=== PATIENT | female | born 1955 | race Caucasian/White ===

== ENCOUNTER 2016-11-14 06:47 | Day surgery (SDC) | payer OTHER ==
[2016-11-13 09:43] VITALS: BMI 29.0
[2016-11-14] MEDS ORDERED: LACTATED RINGERS 1,000 ML IV ONE (07:15)
[2016-11-14 07:29] VITALS: TEMP 97.7
[2016-11-14] MEDS ORDERED: LIDOCAINE 1% 20 ML VIAL (10MG/ML) FOR IV START INTRADERMA ONE (07:40)
[2016-11-14] MEDS ORDERED: BUPIVACAINE (PF) 0.5% 30 ML VIAL ONE (08:29)
[2016-11-14] MEDS ORDERED: fentaNYL (PF) 50 MCG/ML 2 ML AMP ONE (08:29)
[2016-11-14] MEDS ORDERED: MIDAZOLAM 2 MG/2 ML VIAL ONE (08:29)
[2016-11-14] MEDS ORDERED: IOHEXOL 180 MG/ML 1 ML ML ONE (08:29)
[2016-11-14] MEDS ORDERED: TRIAMCINOLONE ACETONIDE 40 MG/ML 1 ML VIAL ONE (08:29)
--- NOTE | 2016-11-14 08:43 | P.PCN ---
Date of Procedure: 11/14/16 Anesthesia: [facility] [place] Surgeon: Bin Diaz Pathology: none sent Condition: stable Disposition: PACU Description of Procedure: PREOPERATIVE DIAGNOSIS: 1-Bilateral sacroiliitis. 2 Lumbar DDD POSTOPERATIVE DIAGNOSIS:. 1-Bilateral sacroiliitis. 2 Lumbar DDD PROCEDURES: Bilateral Sacroiliac joint steroid injection with fluoroscopy ANESTHESIA: Local with 1% lidocaine; Conscious sedation with Versed/fentanyl. EBL: Minimal. PROCEDURE INDICATIONS: This patient with a history of low back pain secondary to sacroiliitis and lumbar DDD unresponsive to conservative management with good relief from previous SIJ injections, #3 today. No use of blood thinners. PROCEDURE DESCRIPTION: The patient was seen and identified in the preoperative area. Risks, benefits, complications, and alternatives were discussed with the patient (including but not limited to incomplete pain relief, bleeding, infection, nerve damage, and allergies to medications), the patient agreed to proceed with the procedure and signed the consent after all questions were answered. Patient was taken to the OR and time out was completed to verify proper patient , position, laterality of pain, and allergies. Pt was placed in the prone position and a pillow was placed under the abdomen to reduce lumbar lordosis. The lumbosacral area was prepped and draped in the usual sterile fashion. Critical pause was taken. Vital signs were closely monitored during the procedure. The fluoroscopic camera was placed in contralateral oblique view and right sacroiliiac joint lower pole was identified. After local infiltration with 1% lidocaine 2 ml, Subsequently, a 22-gauge 3.5 inch spinal needle was introduced into the posteroinferior aspect of the right sacroiliac joint under direct fluoroscopic visualization. Subsequently, 3 ml of a solution of a total of 6 ml solution containing total 4 mL of 0.5% preservative-free bupivicaine mixed with 80 mg of Kenalog was injected after negative aspiration for CSF, blood, and air and negative for paresthesia. The entire procedure was repeated on the left side as above. Needle was withdrawn intact. Skin was cleansed, and bandages were applied. COMPLICATIONS: None. COMMENTS: DISPOSITION / PLANS: The patient was placed in a supine position and transferred to the recovery area in a stable condition for observation and was discharged from the recovery room after meeting discharge criteria. Home discharge instructions given to the patient by the staff. The patient was reexamined prior to discharge. The patient will schedule a follow up in clinic in 4-6 weeks. Patient is not a candidate for SI RFA due to extensive hardware overlying both lumbar spine and sacrum.
--- NOTE | 2016-11-14 09:03 | FL ---
EXAMINATION TYPE: FL guided pain mgmt statistic DATE OF EXAM: 11/14/2016 8:45 AM COMPARISON: NONE HISTORY: Back pain Fluoroscopy support supplied to the referring clinician. See dictated report from anesthesia, 8 seco nds fluoroscopy time, four intraoperative C-arm images document the procedure
[2016-11-14 09:16] VITALS: BP 119/78; PULSE 66; RESP 16
[2016-11-14] MEDS ORDERED: IV FLUID CONTINUATION 1,000 ML IV ONE (09:34)
== END 2016-11-14 09:37 | disposition home or self-care (01) ==
LOC: ORPAIN 06:47
PROVIDERS: ATTEND Anesthesiology
DX: M46.1 Sacroiliitis, not elsewhere classified (principal); M51.36 Other intervertebral disc degeneration, lumbar region; G89.29 Other chronic pain; I10 Essential (primary) hypertension; K21.9 Gastro-esophageal reflux disease without esophagitis; Z79.899 Other long term (current) drug therapy
CPT/HCPCS: J2250; J3301; Q9965; J3010; G0260

== ENCOUNTER → 2016-12-11 | Outpatient (CLI) | payer OTHER ==
[2016-12-11 14:50] VITALS: BP 140/88; PULSE 104; RESP 18
--- NOTE | 2016-12-11 15:26 | P.PN ---
Subjective This is follow-up visit for this patient with a history of severe and chronic low back pain secondary to , bilateral sacroiliitis , failed back surgery syndrome lumbar area , patient had 4 lumbar laminectomy/fusion surgery , , we have done interventional pain management injection, bilateral sacroiliac joint steroid injections, and she get excellent pain relief, her pain improved more than 50% after the sacroiliac joint steroid injection and each injection lasted more than 3-4 weeks , and is currently on pain medications 1-Neurontin 600 mg 3 times a day 2- Flexeril 10 mg 3 times a day 3 -Dilaudid 4 mg every 4 hours Patient denies any side effects of the medication, denies excessive drowsiness or sleepiness, denies suicidal ideation, and reports that the current pain medication is NOT helping To control the pain and improve activity of daily living Physical Examinations : 1-Constitutiona : Cooperative , not in acute distress . 2-HEENT : nech ; supple , no Lymphadenopathy , no Thyromegaly , normal thyroid size . eyes : no ptosis , no icterus, no photophobia . ENT : normal of hearing , normal oropharynx , no Thrush . 3- Respiratory : Chest clear to auscultations Bilaterally , no wheezing , no Rhonchi . 4- Cardiovascular : regular rate and rhythem , S1 , S2 , no S3 , no S4. 5- Gastrointestinal : abdomen soft no tenderness , bowel sounds positive all four quadrents , no organomegally . 6- Genitourinary : Defferred . 7- neurologic : Cranial nerve II to XII intact , no focal neurological deffecit . 8-psychatric : alert , oriented X 3 , appropriate affect , intact judgment and insight . 9-Lymphatic : no Lymphadenopathy . 10- musculoskeltal : exams of the Lumber spine = motor strength lower extremities ,thigh and legs .5/5 deep tendon reflexes : normal Knee Jerk , normal ankle Jerk . lumber facet Loading Test positive strait leg raising test positive at 30 degree , RT ,LT , Fabere test positive RT and positive LT . Range of motion: Range of motion in flexion of the lumbar spine 30 degrees Range of motion range of motion of extension of the lumbar spine 10 Sever tenderness over the Sacroiliac joint on the Right , and Left side Diagnostic study= MRI of the lumbar spine done 10/09/2016 (thumb MRI) extensive postsurgical changes, from interbody and posterior fusion from L2 to S1 on the right paracentral disc protrusion T11 12 and probable severe seroma within the laminectomy site Assessment and plan = - Chronic low back pain secondary to , sacroiliitis ,failed back surgery syndrome lumbar area. - Status post bilateral sacroiliac joints steroid injections, and she had more than 50% improvement of her low back pain after the sacroiliac injections - diagnoses, prognosis, and treatment options including but not limited to physical therapy, surgical interventions, interventional therapies , and medication management including narcotics and adjuvant medication were discussed with the patient and all The questions answered -medication management = she is getting prescription refill from her primary care -procedure= patient will be scheduled to have radiofrequency ablation of the dorsal ramus of L5-S1 ,and radiofrequency ablation of the lateral branches of S1/S2/S3 under fluoroscopy guidance, we will schedule the procedure after patient is seen by Dr. Connolly at [facility], to discuss with him about the results of the new MRI that was done in September 2016, and this showed the patient had seroma measuring 4.3x 2.2 x8.9 cm Objective - Vital Signs Vital signs: Vital Signs Temp Pulse 104 H 12/11/16 14:46 Resp 18 12/11/16 14:46 BP 140/88 12/11/16 14:46 Pulse Ox 96 12/11/16 14:46 Intake & Output 12/10/16 12/11/16 12/11/16 18:59 06:59 18:59 Weight 79.379 kg
== END | disposition home or self-care (01) ==
LOC: PNWHC3 14:06
PROVIDERS: ATTEND Specialist
DX: M46.1 Sacroiliitis, not elsewhere classified (principal); M96.1 Postlaminectomy syndrome, not elsewhere classified; Z98.1 Arthrodesis status; Z79.899 Other long term (current) drug therapy
CPT/HCPCS: 99211

== ENCOUNTER 2017-03-06 09:00 | Day surgery (SDC) | payer OTHER ==
[2017-03-02 10:54] VITALS: BMI 29.0
[~2017-03-06 09:00] MED LIST: LACTATED RINGERS 1,000 ML IV SCH
[2017-03-06 10:12] VITALS: TEMP 98.3
[2017-03-06] MEDS ORDERED: LIDOCAINE 1% 20 ML VIAL (10MG/ML) FOR IV START SQ ONE (10:12)
[2017-03-06] MEDS ORDERED: LACTATED RINGERS 1,000 ML IV ONE (10:14)
[2017-03-06] MEDS ORDERED: MIDAZOLAM 2 MG/2 ML VIAL ONE (10:20)
[2017-03-06] MEDS ORDERED: fentaNYL (PF) 50 MCG/ML 2 ML AMP ONE (10:20)
[2017-03-06] MEDS ORDERED: TRIAMCINOLONE ACETONIDE 40 MG/ML 1 ML VIAL ONE (10:20)
--- NOTE | 2017-03-06 10:47 | P.PCN ---
Date of Procedure: 03/06/17 Surgeon: Bin Diaz Pathology: none sent Condition: stable Disposition: PACU Description of Procedure: PREOPERATIVE DIAGNOSIS: Sacroiliitis; lumbar spondylosis without myelopathy POSTOPERATIVE DIAGNOSIS: Sacroiliitis; lumbar spondylosis without myelopathy PROCEDURE: Radiofrequency thermocoagulation/ablation of the Medial branch of L5 and S1, S2, S3 lateral branch levels under fluoroscopic guidance, right ANESTHESIA: Local with 1% lidocaine; IV sedation with Versed/fentanyl EBL: Minimal PROCEDURE INDICATION: The patient with low back pain secondary to sacroilitis with marked decrease in pain with prior sacroiliac joint injections. No use of blood thinners. Good relief from previous L SI RFA, patient presents for R SI RFA today. PROCEDURE DESCRIPTION: The patient was seen and identified in the preoperative area. Risks, benefits, complications, and alternatives were discussed with the patient, with risks including but not limited to bleeding, infection, nerve damage, incomplete pain relief, and allergic reactions to medications. The patient agreed to proceed with the procedure and signed the informed consent after all questions were answered. IV was started. Vital signs were stable throughout the procedure. Patient was taken to the OR and time out was completed to verify proper patient , procedure, laterality of pain, and allergies. The patient was placed in the prone position on procedure table and a pillow was placed under the abdomen to reduce lumbar lordosis. The lumbosacral area was prepped and draped in the usual sterile fashion. Critical pause was taken. Vital signs were closely monitored during the procedure. L5 Medial Branch: Using right oblique fluoroscopy, the junction of the transverse process and the superior articular process of the top of the sacrum on the right side, which correspond to the fluoroscopic image of the "eye of the Alex dog" was identified. Skin and deeper tissues were localized with 1% lidocaine at the identified level. Then using fluoroscopy, a 10-cm 18-gauge radiofrequency cannula with a 10-mm active tip was was advanced under fluoroscopic guidance until contact was made with periosteum. At this level, the Sensory testing of L5 Medial branch was performed at 50 Hz and 0 to 1 volt with production of concordant pain. Motor stimulation was done at 2 Hz with stimulation of multifidus muscle contraction at (0.1-2.5) volts. No radicular symptoms or paresthesias were produced during the testing. Subsequently, the L5 medial branch was subjected to a radiofrequency ablation at a mode of 90 seconds at 80 degrees Celsius after negative motor and sensory testing as indicated and after injecting 0.5 ml of preservative free Lidocaine 1%. Then after the radiofrequency procedure was done, 1 mL of a solution containing 4 mL of 0.5% preservative-free lidocaine mixed with 40 mg of Kenalog. S1, S2, and S3 Medial branches: Using the oblique position, the right sacroiliac joint was identified. Skin and deeper tissues corresponding to the site were anesthetized with 1% lidocaine. Under fluoroscopic guidance, a total of three 10-cm 18-gauge radiofrequency cannula with 10-mm active tips were advanced to the lateral aspects of the S1, S2, and S3 vertebral foramina. Subsequently, sensory and motor testings were performed at a total of 3 segments at 50 Hz and 2 Hz respectively which produced concordant pain without radiculopathy or paresthesia. Then each segment was subjected to radiofrequency ablation at a mode of 90 seconds at 80 degrees Celsius for a total of 3 lesions with the bipolar technique. Then after the radiofrequency procedure was done, each site was injected with 1 mL of the aforementioned solution containing 4 mL of 0.5% preservative-free lidocaine mixed with 40 mg of Kenalog. The needles were withdrawn. Area was cleaned. Band-Aid was applied. COMPLICATIONS: None. COMMENTS: DISPOSITION / PLANS: The patient was placed in a supine position and transferred to the recovery area in a stable condition for observation and was discharged from the recovery room after meeting discharge criteria. Home discharge instructions given to the patient by the staff. The patient was reexamined prior to discharge. The patient will schedule a follow up in clinic in 4-6 weeks. Of note, the patient has extensive hardware in her lumbar spine and sacrum, so this procedure was technically extremely challenging due to poor visualization on fluoroscopy. That said, there was some positive sensory testing and all motor testing was completely negative.
[2017-03-06 11:00] VITALS: RESP 16
[2017-03-06 11:20] VITALS: BP 153/92; PULSE 84
[2017-03-06] MEDS ORDERED: IV FLUID CONTINUATION 1,000 ML IV ONE (11:20)
--- NOTE | 2017-03-06 12:43 | FL ---
Fluoroscopy HISTORY: Pain 15 seconds fluoroscopy time supplied to the referring clinician. 3 intraoperative C-arm images docum ent the procedure. See dictated report from anesthesia.
== END 2017-03-06 11:32 | disposition home or self-care (01) ==
LOC: ORPAIN 09:00
PROVIDERS: ATTEND Anesthesiology
DX: G89.29 Other chronic pain (principal); M46.1 Sacroiliitis, not elsewhere classified; M47.816 Spondylosis without myelopathy or radiculopathy, lumbar region; K21.9 Gastro-esophageal reflux disease without esophagitis; Z79.891 Long term (current) use of opiate analgesic; Z79.899 Other long term (current) drug therapy
CPT/HCPCS: 64640; 64635; 99152; J2250; J3301; J3010

== ENCOUNTER → 2017-04-03 | Outpatient (CLI) | payer OTHER ==
[2017-04-03 12:26] VITALS: BP 138/77; PULSE 85; RESP 16; TEMP 98.2
--- NOTE | 2017-04-04 11:33 | P.PN ---
Subjective follow-up visit for this 61 years FEMALE with a chronic history of severe low back pain ,she had multiple lumbar laminectomy and fusion surgeries , and she is diagnosed with failed back surgery syndrome, lumbar area and lumbar spondylosis and sacroiliitis, done radiofrequency ablation on the Kerlix around and patient currently complaining of, severe low back pain in the lumbar area, denies any motor or sensory deficits. She denies any motor or night sweats and no change in the bowel movement or urination. His currently on multiple pain medications. and these medications are not helping, from her pain and improve her quality of life, is currently on methadone 15 mg 3 times a day, Dilaudid 4 mg every 4 hours, Neurontin 600 mg 3 times a day, Motrin 600 mg every 8 hours, and Flexeril 10 mg 3 times a day, denies any side effects of the medication and she denies any excessive drowsiness or sleepiness, but she reported ,that the current pain medication is not helping Objective - Vital Signs Vital signs: Vital Signs Temp 98.2 F 04/03/17 12:14 Pulse 85 04/03/17 12:14 Resp 16 04/03/17 12:14 BP 138/77 04/03/17 12:14 Pulse Ox Intake & Output 04/03/17 04/04/17 04/04/17 18:59 06:59 18:59 Weight 84.368 kg - Exam Physical Examinations : 1-Constitutiona : Cooperative , not in acute distress . 2-HEENT : nech ; supple , no Lymphadenopathy , normal thyroid size . eyes : no ptosis , no icterus, no photophobia . ENT : normal of hearing , normal oropharynx , no Thrush . 3- Respiratory : Chest clear to auscultations Bilaterally , no wheezing , no Rhonchi . 4- Cardiovascular : regular rate and rhythem , S1 , S2 , no S3 , no S4. 5- Gastrointestinal : abdomen soft no tenderness , bowel sounds positive all four quadrents , no organomegally . 6- Genitourinary : Defferred . 7- neurologic : Cranial nerve II to XII intact , no focal neurological deffecit . 8-psychatric : alert , oriented X 3 , appropriate affect , intact judgment and insight . 9-Lymphatic : no Lymphadenopathy . 10- musculoskeltal : , Lumber spine = normal moter stegnth lower extremities ,thigh and legs .5/5 deep tendon reflexes : normal Knee Jerk , normal ankle Jerk . positive lumber facet Loading Test strait leg raising test positive at 30 degree , RT ,LT , Fabere test positive RT and positive LT . Sever tenderness over the Sacroiliac joint on the Right , and Left side . There is open lesion at the tailbone area (superficial skin opening, no discharge, no tenderness ) Assessment and Plan Plan: Assessment and plan = - Chronic low back pain secondary to , lumbar spondylosis with facet arthropathy without myelopathy , failed back surgery syndrome lumbar area , sacroiliitis - diagnoses, prognosis, and treatment options including but not limited to physical therapy, surgical interventions, interventional therapies and medication management including narcotics and adjuvant medication were discussed with the patient and all questions answered to the patient's satisfaction. -medication refile = currently getting Prescription refills from her primary care, because patient having no benefit from the current pain medication. I recommend to discontinue methadone and discontinued Dilaudid, Patient could benefit from MS Contin 15 mg every 8 hours , and Wyatt 10/325 every 6 hours (prescription from her primary care ) Recommend continue Neurontin 600 mg 3 times a day, and Flexeril 10 mg 3 times a day, and continue Motrin 600 mg every 8 hours -procedure= in the future we can consider doing caudal epidural steroid injection with lysis of epidural adhesions Time with Patient: Less than 30
== END | disposition home or self-care (01) ==
LOC: PNWHC3 11:52
PROVIDERS: ATTEND Specialist
DX: M47.816 Spondylosis without myelopathy or radiculopathy, lumbar region (principal); M46.96 Unspecified inflammatory spondylopathy, lumbar region; M46.1 Sacroiliitis, not elsewhere classified; M96.1 Postlaminectomy syndrome, not elsewhere classified; G89.29 Other chronic pain; Z79.1 Long term (current) use of non-steroidal anti-inflammatories (NSAID); Z79.899 Other long term (current) drug therapy
CPT/HCPCS: 99211

== ENCOUNTER → 2017-05-02 | Outpatient (CLI) | payer OTHER ==
[2017-05-02 14:05] VITALS: BP 140/90; PULSE 94; RESP 18; TEMP 97.9
--- NOTE | 2017-05-02 14:35 | P.PN ---
Progress Note - Text Patient returns for followup for chronic back pain with radiation to to the back of the LLE. Patient recently underwent bilateral SI RFA, the right side of which caused severe pain but did give her some relief beginning last week. Patient continues on opioid medications for pain from PCP with good relief. Patient denies adverse drug effects from medications. Today, pt denies new- onset weakness, bowel/bladder incontinence, or any other signs or symptoms of cauda equina syndrome. There are no signs of acute intoxication, and no indications of medication diversion or overuse. In addition to above, 13-point review of systems is also negative for chest pain , shortness of breath, changes in vision, changes in hearing, new onset weakness , abdominal pain, diarrhea, extreme fatigue, malaise, fever, skin changes, homicidal or suicidal ideation, or bowel or bladder incontinence. Vital Signs: Reviewed in EMR Gen: WDWN, AAOx3, NAD HEENT: NCAT, EOMI, hearing grossly normal Pulm: resp unlabored Abd: soft, NT, ND Neck: supple, trachea midline ROM in flexion lumbar spine: reduced ROM in extension lumbar spine: reduced significantly Lumbar paravertebral tenderness: + Facet loading: + bilateral, L > R SI joint tenderness: + L > R Nolberto's test: + L > R Straight leg raise: neg Lower extremity: decreased ROM dorsiflexion/plantarflexion strength, hip flexion/extension, and knee flexion/extension secondary to pain Neuro: CN II-XII grossly intact, muscle strength lower extremities PRESERVED Imaging: Reviewed in EMR Assessment: 1. lumbar PLPS 2. lumbar spondylosis without myelopathy 3. chronic pain syndrome Plan: 1. Explanation: Opioid and psychological risk scores were reviewed. Diagnoses , prognoses, and multiple treatment options including but not limited to physical therapy, interventional therapies, adjuvant medical therapies, narcotic medication therapies, and surgery were discussed with the patient and all questions were answered to the patient's satisfaction. 2. Opioid agreement: no opioids prescribed today 3. Counseling: The patient was counseled extensively on BODY MASS INDEX, EXERCISE. Specifically, the patient was instructed regarding the importance of weight control and exercise in the context of both chronic pain and overall health. 4. Procedures: none for now, patient does not want caudal with lysis 5. Consultations: None 6. Investigations: None 7. Medications: none prescribed 8. Disposition: f/u for re-eval in 8 weeks; patient wishes to go to the gym and improve her core strength. I discussed SCS option with her as well, which she wishes to consider at this point as well. PQRS measures: 1-Patient's medications are documented in the chart. 2-Tobacco use is negative 3-Patient has not had a pneumococcal vaccine. 4-Advanced care planning discussed, patient unable to give. 5-Opioid contract signed with the patient. 6-Pain positive, follow-up visit or procedure scheduled 7-Patient's blood pressure measured and documented, and patient will follow up with the primary care due to hypertension. 8-Patient's weight was measured, and body mass index ABOVE the normal limits, and counseling was done. Patient instructed to follow up with PCP. 9-Patient WAS NOT identified as an unhealthy alcohol user.
== END ==
LOC: PNWHC3 13:13
PROVIDERS: ATTEND Anesthesiology
DX: M47.816 Spondylosis without myelopathy or radiculopathy, lumbar region (principal); G97.1 Other reaction to spinal and lumbar puncture; G89.4 Chronic pain syndrome
CPT/HCPCS: 99211

== ENCOUNTER → 2017-07-19 | Outpatient (CLI) | payer OTHER ==
[2017-07-19 13:58] VITALS: BP 128/77; PULSE 74; RESP 16; TEMP 98.3
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
== END ==
LOC: PNWHC3 13:19
PROVIDERS: ATTEND Anesthesiology
DX: M54.5 Low back pain (principal); Z79.891 Long term (current) use of opiate analgesic
CPT/HCPCS: 99211

== ENCOUNTER → 2017-11-01 | Outpatient (CLI) | payer OTHER ==
--- NOTE | 2017-11-01 15:18 | P.PN ---
Subjective Progress Note Date: 11/01/17 This is follow-up visit for this patient with a history of severe and chronic low back pain secondary to recurrent uveitis and failed back surgery syndrome and lumbar area,we have done, interventional pain management injection,, lateral sacroiliac joints steroid injections and she had good pain relief but later on we did radiofrequency ablation of the sacroiliac joint , patient had, increase in her pain for 6 weeks after the radiofrequency, currently she is complaining of severe localized pain in the low back area radiating to the buttock bilaterally Patients currently on 1-Lidoderm patch 5% 2-Motrin 600 mg 3 times a day 3-Neurontin 600 mg 3 times a day. 4-flexeril 10 mg 3 times a day Patient denies any side effects of the medication, denies excessive drowsiness or sleepiness, denies suicidal ideation, and reports that the current pain medication is NOT helping To control the pain , and improve activity of daily living , patient denies any fever or night sweats, denies any change in the bowel movements or urination Physical Examinations : 1-Constitutiona : Cooperative , not in acute distress . 2-HEENT : nech ; supple , no Lymphadenopathy , no Thyromegaly , normal thyroid size . eyes : no ptosis , no icterus, no photophobia . ENT : normal of hearing , normal oropharynx , no Thrush . 3- Respiratory : Chest clear to auscultations Bilaterally , no wheezing , no Rhonchi . 4- Cardiovascular : regular rate and rhythem , S1 , S2 , no S3 , no S4. 5- Gastrointestinal : abdomen soft no tenderness , bowel sounds positive all four quadrents , no organomegally . 6- Genitourinary : Defferred . 7- neurologic : Cranial nerve II to XII intact , no focal neurological deffecit . 8-psychatric : alert , oriented X 3 , appropriate affect , intact judgment and insight . 9-Lymphatic : no Lymphadenopathy . 10- musculoskeltal : exams of the Lumber spine = motor strength lower extremities ,thigh and legs .4/5 deep tendon reflexes : normal Knee Jerk , normal ankle Jerk . lumber facet Loading Test positive strait leg raising test positive at 30 degree , RT ,LT , Fabere test positive RT and positive LT . Range of motion: Range of motion in flexion of the lumbar spine 30 degrees Range of motion range of motion of extension of the lumbar spine 10 Sever tenderness over the Sacroiliac joint on the Right , and Left side Assessment and plan = Chronic low back pain secondary to sever sacroiliitis, back surgery syndrome and lumbar area Will be good candidate to have repeat bilateral sacroiliac joint steroid injections , She will not be good candidate for radiofrequency ablation of the sacroiliac joint because she had increased pain after we have done last year , in the future patient could be a candidate, to have sacroiliac joint fusion ,and this has to be addressed with the spine surgeon Objective - Vital Signs Vital signs: Vital Signs Temp Pulse 83 11/01/17 14:01 Resp 16 11/01/17 14:01 BP 132/60 11/01/17 14:01 Pulse Ox 94 L 11/01/17 14:01 Intake & Output 10/31/17 11/01/17 11/01/17 18:59 06:59 18:59 Weight 77.111 kg
[2017-11-01 16:41] VITALS: BP 132/60; RESP 16
[2017-11-01 16:42] VITALS: PULSE 83
== END | disposition home or self-care (01) ==
LOC: PNWHC3 13:22
PROVIDERS: ATTEND Specialist
DX: M46.1 Sacroiliitis, not elsewhere classified (principal)
CPT/HCPCS: 99211

== ENCOUNTER 2017-12-03 08:55 | Day surgery (SDC) | payer OTHER ==
[2017-11-30 12:13] VITALS: BMI 29.1
[~2017-12-03 08:55] MED LIST changes: +LACTATED RINGERS 1,000 ML IV ONE; -LACTATED RINGERS 1,000 ML IV SCH
[2017-12-03 10:14] VITALS: RESP 18; TEMP 97.1
[2017-12-03] MEDS ORDERED: LIDOCAINE 1% 20 ML VIAL (10MG/ML) FOR IV START INTRADERMA ONE (10:28)
--- NOTE | 2017-12-03 11:16 | P.PCN ---
Date of Procedure: 12/03/17 Procedure(s) Performed: Preoperative diagnoses= 1-bilateral sacroiliitis. Postoperative diagnoses= same as preoperative diagnosis. Procedure= bilateral sacroiliac joint steroid injection under fluoroscopic guidance. Anesthesia= moderate sedation with Versed 2 mg and fentanyl 100 micrograms and local infiltration with lidocaine 1% 4 ml Estimated blood loss=minimal. Procedure indication= the patient had a history of severe chronic low back pain , diagnosed with sacroiliitis and lumbar sacral facet arthropathy unresponsive to conservative treatment. Procedure description= the patient was seen and identified in the preoperative holding area, risks and benefits and alternative of the procedure and possible complications discussed with the patient, and he agreed with the preceding, patient signed the consent, an IV was started, and vital signs were monitored and were stable throughout the procedure, patient was placed in the prone position or table and the lumbosacral area was prepped and draped with a sterile fashion, vital signs were closely monitored during the procedure, the fluoroscopy camera was placed in the contralateral oblique view on the right sacroiliac joint and the lower part of the joint was identified, local infiltration of the skin and subcutaneous tissue with lidocaine 1% 2 mL then a 22-gauge Quincke-type spinal needle advanced slowly under fluoroscopy and placed in the posterior and inferior border of the right sacroiliac joint, placement confirmed with AP and lateral view, and after appropriate needle placement confirmed and after negative aspiration for heme and CSF and there was no paresthesia during the injection, 3 ml of Marcaine 0.5% and 40 mg of Kenalog injected after negative aspiration, the needle removed, and the entire same procedure was repeated for the left sacroiliac joint Patient tolerated the procedure well without any complication, The patient returned to supine position after the back was cleaned and a Band- Aid applied, the patient transported to recovery room in stable condition and he was monitored for 30 minutes before he was discharged home and then patient was reexamined before going home and patient was discharged in stable condition and patient will follow up with the pain clinic in a few weeks
[2017-12-03] MEDS ORDERED: IV FLUID CONTINUATION 1,000 ML IV ONE (11:24)
--- NOTE | 2017-12-03 11:49 | FL ---
EXAMINATION TYPE: FL guided pain mgmt statistic DATE OF EXAM: 12/03/2017 HISTORY: Flouroscopy time 5 seconds of fluoroscopy provided. IMPRESSION: 1. Fluoroscopy time.
[2017-12-03 13:14] VITALS: BP 115/73; PULSE 72
== END 2017-12-03 13:29 | disposition home or self-care (01) ==
LOC: ORPAIN 08:55
PROVIDERS: ATTEND Specialist
DX: G89.29 Other chronic pain (principal); M46.1 Sacroiliitis, not elsewhere classified; M47.817 Spondylosis without myelopathy or radiculopathy, lumbosacral region
CPT/HCPCS: J2250; J3301; J3010; G0260; 99152

== ENCOUNTER 2017-12-27 05:59 | Day surgery (SDC) | payer OTHER ==
[2017-12-25 14:53] VITALS: BMI 28.2
[~2017-12-27 05:59] MED LIST changes: -LACTATED RINGERS 1,000 ML IV ONE; +LACTATED RINGERS 1,000 ML IV SCH
[2017-12-27] MEDS ORDERED: LIDOCAINE 1% 20 ML VIAL (10MG/ML) FOR IV START INTRADERMA ONE (07:15)
[2017-12-27 07:19] VITALS: TEMP 98
[2017-12-27 08:39] LABS: Glucose,Whole Blood 88 mg/dL (75-99)
--- NOTE | 2017-12-27 08:41 | P.PCN ---
Date of Procedure: 12/27/17 Procedure(s) Performed: Preoperative diagnoses= 1-bilateral sacroiliitis. 2-failed back surgery syndrome lumbar area Postoperative diagnoses= same as preoperative diagnosis. Procedure= bilateral sacroiliac joint steroid injection under fluoroscopic guidance. Anesthesia= moderate sedation with Versed 2 mg and fentanyl 100 micrograms and local infiltration with lidocaine 1% 4 ml Estimated blood loss=minimal. Procedure indication= the patient had a history of severe chronic low back pain , diagnosed with sacroiliitis and lumbar sacral facet arthropathy unresponsive to conservative treatment. Procedure description= the patient was seen and identified in the preoperative holding area, risks and benefits and alternative of the procedure and possible complications discussed with the patient, and he agreed with the preceding, patient signed the consent, an IV was started, and vital signs were monitored and were stable throughout the procedure, patient was placed in the prone position or table and the lumbosacral area was prepped and draped with a sterile fashion, vital signs were closely monitored during the procedure, the fluoroscopy camera was placed in the contralateral oblique view on the right sacroiliac joint and the lower part of the joint was identified, local infiltration of the skin and subcutaneous tissue with lidocaine 1% 2 mL then a 22-gauge Quincke-type spinal needle advanced slowly under fluoroscopy and placed in the posterior and inferior border of the right sacroiliac joint, placement confirmed with AP and lateral view, and after appropriate needle placement confirmed and after negative aspiration for heme and CSF and there was no paresthesia during the injection, 3 ml of Marcaine 0.5% and 40 mg of Kenalog injected after negative aspiration, the needle removed, and the entire same procedure was repeated for the left sacroiliac joint Patient tolerated the procedure well without any complication, The patient returned to supine position after the back was cleaned and a Band- Aid applied, the patient transported to recovery room in stable condition and he was monitored for 30 minutes before he was discharged home and then patient was reexamined before going home and patient was discharged in stable condition and patient will follow up with the pain clinic in a few weeks
[2017-12-27] MEDS ORDERED: IV FLUID CONTINUATION 1,000 ML IV ONE (08:45)
[2017-12-27 08:52] VITALS: RESP 16
[2017-12-27 09:15] VITALS: BP 143/82; PULSE 70
--- NOTE | 2017-12-27 14:37 | FL ---
EXAMINATION TYPE: FL guided pain mgmt statistic DATE OF EXAM: 12/27/2017 CLINICAL HISTORY: Low back and sacroiliac joint pain. TECHNIQUE: Fluoroscopy. COMPARISON: None. FINDINGS: Fluoroscopic guidance was provided during pain relief procedure performed by Dr. Salter . A total of 5 seconds of fluoroscopic time was utilized during the procedure and two spot images ar e acquired. Images acquired shows needle localization at inferior level of bilateral sacroiliac join ts. Overlying fusion hardware is partially imaged. IMPRESSION: As Above.
== END 2017-12-27 09:29 | disposition home or self-care (01) ==
LOC: ORPAIN 05:59
PROVIDERS: ATTEND Specialist
DX: G89.29 Other chronic pain (principal); M46.1 Sacroiliitis, not elsewhere classified; M96.1 Postlaminectomy syndrome, not elsewhere classified; E03.9 Hypothyroidism, unspecified
CPT/HCPCS: J2250; J3301; J3010; G0260

== ENCOUNTER → 2018-03-05 | Outpatient (CLI) | payer OTHER ==
[2018-03-05 13:47] VITALS: BP 129/81; PULSE 78; RESP 18
--- NOTE | 2018-03-05 14:18 | P.PN ---
Progress Note - Text Progress Note Date: 03/05/18 Patient returns for followup for chronic back pain with radiation to to the back of the LLE. Patient recently underwent bilateral SIJ injections, which have given her excellent relief for interval since procedure done. Patient continues on opioid medications for pain from PCP with good relief. Patient denies adverse drug effects from medications. Today, pt denies new-onset weakness, bowel/bladder incontinence, or any other signs or symptoms of cauda equina syndrome. There are no signs of acute intoxication, and no indications of medication diversion or overuse. In addition to above, 13-point review of systems is also negative for chest pain , shortness of breath, changes in vision, changes in hearing, new onset weakness , abdominal pain, diarrhea, extreme fatigue, malaise, fever, skin changes, homicidal or suicidal ideation, or bowel or bladder incontinence. Vital Signs: Reviewed in EMR Gen: WDWN, AAOx3, NAD HEENT: NCAT, EOMI, hearing grossly normal Pulm: resp unlabored Abd: soft, NT, ND Neck: supple, trachea midline ROM in flexion lumbar spine: reduced ROM in extension lumbar spine: reduced significantly Lumbar paravertebral tenderness: + Facet loading: + bilateral, L > R SI joint tenderness: + L >> R Nolberto's test: + L >> R Straight leg raise: neg Lower extremity: decreased ROM dorsiflexion/plantarflexion strength, hip flexion/extension, and knee flexion/extension secondary to pain Neuro: CN II-XII grossly intact, muscle strength lower extremities PRESERVED Imaging: Reviewed in EMR Assessment: 1. lumbar PLPS 2. lumbar spondylosis without myelopathy 3. chronic pain syndrome 4. SIJ dysfunction Plan: 1. Explanation: Opioid and psychological risk scores were reviewed. Diagnoses , prognoses, and multiple treatment options including but not limited to physical therapy, interventional therapies, adjuvant medical therapies, narcotic medication therapies, and surgery were discussed with the patient and all questions were answered to the patient's satisfaction. 2. Opioid agreement: no opioids prescribed today 3. Counseling: The patient was counseled extensively on BODY MASS INDEX, EXERCISE. Specifically, the patient was instructed regarding the importance of weight control and exercise in the context of both chronic pain and overall health. 4. Procedures: L SI RFA 5. Consultations: None 6. Investigations: None 7. Medications: none prescribed 8. Disposition: f/u for procedure as scheduled PQRS measures: 1-Patient's medications are documented in the chart. 2-Tobacco use is negative 3-Patient has not had a pneumococcal vaccine. 4-Advanced care planning discussed, patient unable to give. 5-Opioid contract signed with the patient. 6-Pain positive, follow-up visit or procedure scheduled 7-Patient's blood pressure measured and documented, and patient will follow up with the primary care due to hypertension. 8-Patient's weight was measured, and body mass index ABOVE the normal limits, and counseling was done. Patient instructed to follow up with PCP. 9-Patient WAS NOT identified as an unhealthy alcohol user.
== END | disposition home or self-care (01) ==
LOC: PNWHC3 13:05
PROVIDERS: ATTEND Anesthesiology
DX: G89.4 Chronic pain syndrome (principal); M47.816 Spondylosis without myelopathy or radiculopathy, lumbar region; M53.3 Sacrococcygeal disorders, not elsewhere classified; M96.1 Postlaminectomy syndrome, not elsewhere classified; Z79.891 Long term (current) use of opiate analgesic
CPT/HCPCS: 99211

== ENCOUNTER 2018-03-12 05:56 | Day surgery (SDC) | payer OTHER ==
[2018-03-07 10:47] VITALS: BMI 28.2
[2018-03-12 06:12] VITALS: RESP 18; TEMP 98
[2018-03-12] MEDS ORDERED: LACTATED RINGERS 1,000 ML IV ONE (06:16)
[2018-03-12] MEDS ORDERED: LIDOCAINE 1% 20 ML VIAL (10MG/ML) FOR IV START INTRADERMA ONE (06:17)
[2018-03-12 06:24] LABS: Glucose,Whole Blood 88 mg/dL (75-99)
[2018-03-12 08:22] VITALS: BP 136/76; PULSE 76
[2018-03-12] MEDS ORDERED: IV FLUID CONTINUATION 1,000 ML IV ONE (08:22)
--- NOTE | 2018-03-12 08:23 | FL ---
Fluoroscopy HISTORY: Pain 15 seconds fluoroscopy time supplied to the referring clinician. 2 intraoperative C-arm images docum ent the procedure. See dictated report from anesthesia.
--- NOTE | 2018-03-12 08:42 | P.PCN ---
Date of Procedure: 03/12/18 Surgeon: Bin Diaz Pathology: none sent Condition: stable Disposition: PACU Description of Procedure: PREOPERATIVE DIAGNOSIS: Sacroiliitis; lumbar spondylosis without myelopathy POSTOPERATIVE DIAGNOSIS: Sacroiliitis; lumbar spondylosis without myelopathy PROCEDURE: Radiofrequency thermocoagulation/ablation of the Medial branch of L5 and S1, S2, S3 lateral branch levels under fluoroscopic guidance, left ANESTHESIA: Local with 1% lidocaine; IV sedation with Versed/fentanyl EBL: Minimal PROCEDURE INDICATION: The patient with low back pain secondary to sacroilitis with marked decrease in pain with prior sacroiliac joint injections. No use of blood thinners. PROCEDURE DESCRIPTION: The patient was seen and identified in the preoperative area. Risks, benefits, complications, and alternatives were discussed with the patient, with risks including but not limited to bleeding, infection, nerve damage, incomplete pain relief, and allergic reactions to medications. The patient agreed to proceed with the procedure and signed the informed consent after all questions were answered. IV was started. Vital signs were stable throughout the procedure. Patient was taken to the OR and time out was completed.The patient was placed in the prone position on procedure table and a pillow was placed under the abdomen to reduce lumbar lordosis. The lumbosacral area was prepped and draped in the usual sterile fashion. Critical pause was taken. Vital signs were closely monitored during the procedure. L5 Medial Branch: Using left oblique fluoroscopy, the junction of the transverse process and the superior articular process of the top of the sacrum on the right side, which correspond to the fluoroscopic image of the "eye of the Alex dog" was identified. Skin and deeper tissues were localized with 1% lidocaine at the identified level. Then using fluoroscopy, a 10-cm 20-gauge radiofrequency cannula with a 10-mm active tip was was advanced under fluoroscopic guidance until contact was made with periosteum. At this level, the Sensory testing of L5 Medial branch was performed at 50 Hz and 0 to 1 volt with production of concordant pain. Motor stimulation was done at 2 Hz with stimulation of multifidus muscle contraction at (0.1-2.5) volts. No radicular symptoms or paresthesias were produced during the testing. Subsequently, the L5 medial branch was subjected to a radiofrequency ablation at a mode of 90 seconds at 80 degrees Celsius after negative motor and sensory testing as indicated and after injecting 0.5 ml of preservative free Lidocaine 1%. Then after the radiofrequency procedure was done, 1 mL of a solution containing 4 mL of 0.5% preservative-free lidocaine mixed with 40 mg of Kenalog. S1, S2, and S3 Medial branches: Using the oblique position, the left sacroiliac joint was identified, although this was difficult due to a significant amount of hardware in the lumbosacral spine. Skin and deeper tissues corresponding to the site were anesthetized with 1% lidocaine. Under fluoroscopic guidance, a total of three 10-cm 18-gauge radiofrequency cannula with 10-mm active tips were advanced to the lateral aspects of the S1, S2, and S3 vertebral foramina as best as they could be visualized. Subsequently, sensory and motor testings were performed at a total of 3 segments at 50 Hz and 2 Hz respectively which produced no radiculopathy or paresthesia. Then each segment was subjected to radiofrequency ablation at a mode of 90 seconds at 80 degrees Celsius for a total of 3 lesions with the bipolar technique. Then after the radiofrequency procedure was done, each site was injected with 1 mL of the aforementioned solution containing 4 mL of 1% preservative-free lidocaine mixed with 40 mg of Kenalog. The needles were withdrawn. Area was cleaned. Band-Aid was applied. COMPLICATIONS: None. COMMENTS: DISPOSITION / PLANS: The patient was placed in a supine position and transferred to the recovery area in a stable condition for observation and was discharged from the recovery room after meeting discharge criteria. Home discharge instructions given to the patient by the staff. The patient was reexamined prior to discharge. The patient will schedule a follow up for right SI RFA in 4-6 weeks.
== END 2018-03-12 08:28 | disposition home or self-care (01) ==
LOC: ORPAIN 05:56
PROVIDERS: ATTEND Anesthesiology
DX: G89.4 Chronic pain syndrome (principal); M46.1 Sacroiliitis, not elsewhere classified; M47.816 Spondylosis without myelopathy or radiculopathy, lumbar region; Z79.891 Long term (current) use of opiate analgesic
CPT/HCPCS: 64640 ×3; 64635; J2250; J3301; J3010; 99152

== ENCOUNTER 2018-04-09 09:46 | Day surgery (SDC) | payer OTHER ==
[2018-04-08 10:38] VITALS: BMI 27.9
[2018-04-09] MEDS ORDERED: LACTATED RINGERS 1,000 ML IV SCH (10:00)
[2018-04-09] MEDS ORDERED: LIDOCAINE 1% 20 ML VIAL (10MG/ML) FOR IV START INTRADERMA ONE (10:42)
[2018-04-09 10:55] VITALS: RESP 16; TEMP 96.6
--- NOTE | 2018-04-09 11:50 | P.PCN ---
Date of Procedure: 04/09/18 Surgeon: Bin Diaz Pathology: none sent Condition: stable Disposition: PACU Description of Procedure: PREOPERATIVE DIAGNOSIS: Sacroiliitis; lumbar spondylosis without myelopathy POSTOPERATIVE DIAGNOSIS: Sacroiliitis; lumbar spondylosis without myelopathy PROCEDURE: Radiofrequency thermocoagulation/ablation of the Medial branch of L5 and S1, S2, S3 lateral branch levels under fluoroscopic guidance, right ANESTHESIA: Local with 1% lidocaine; IV sedation with Versed/fentanyl EBL: Minimal PROCEDURE INDICATION: The patient with low back pain secondary to sacroilitis with marked decrease in pain with prior sacroiliac joint injections. No use of blood thinners. Good relief with previous L SI RFA. PROCEDURE DESCRIPTION: The patient was seen and identified in the preoperative area. Risks, benefits, complications, and alternatives were discussed with the patient, with risks including but not limited to bleeding, infection, nerve damage, incomplete pain relief, and allergic reactions to medications. The patient agreed to proceed with the procedure and signed the informed consent after all questions were answered. IV was started. Vital signs were stable throughout the procedure. Patient was taken to the OR and time out was completed.The patient was placed in the prone position on procedure table and a pillow was placed under the abdomen to reduce lumbar lordosis. The lumbosacral area was prepped and draped in the usual sterile fashion. Critical pause was taken. Vital signs were closely monitored during the procedure. L5 Medial Branch: Using right oblique fluoroscopy, the junction of the transverse process and the superior articular process of the top of the sacrum on the right side, which correspond to the fluoroscopic image of the "eye of the Alex dog" was identified. Skin and deeper tissues were localized with 1% lidocaine at the identified level. Then using fluoroscopy, a 10-cm 20-gauge radiofrequency cannula with a 10-mm active tip was was advanced under fluoroscopic guidance until contact was made with periosteum. At this level, the Sensory testing of L5 Medial branch was performed at 50 Hz and 0 to 1 volt with production of concordant pain. Motor stimulation was done at 2 Hz with stimulation of multifidus muscle contraction at (0.1-2.5) volts. No radicular symptoms or paresthesias were produced during the testing. Subsequently, the L5 medial branch was subjected to a radiofrequency ablation at a mode of 90 seconds at 80 degrees Celsius after negative motor and sensory testing as indicated and after injecting 0.5 ml of preservative free Lidocaine 1%. Then after the radiofrequency procedure was done, 1 mL of a solution containing 4 mL of 0.5% preservative-free lidocaine mixed with 40 mg of Kenalog. S1, S2, and S3 Medial branches: Using the oblique position, the right sacroiliac joint was identified, although this was again extremely difficult due to a significant amount of hardware in the lumbosacral spine. Skin and deeper tissues corresponding to the site were anesthetized with 1% lidocaine. Under fluoroscopic guidance, a total of three 10-cm 20-gauge radiofrequency cannula with 10-mm active tips were advanced to the lateral aspects of the S1, S2, and S3 vertebral foramina as best as they could be visualized. Subsequently , sensory and motor testings were performed at a total of 3 segments at 50 Hz and 2 Hz respectively which produced no radiculopathy or paresthesia. Then each segment was subjected to radiofrequency ablation at a mode of 90 seconds at 80 degrees Celsius for a total of 3 lesions with the bipolar technique. Then after the radiofrequency procedure was done, each site was injected with 1 mL of the aforementioned solution containing 4 mL of 1% preservative-free lidocaine mixed with 40 mg of Kenalog. The needles were withdrawn. Area was cleaned. Band-Aid was applied. COMPLICATIONS: None. COMMENTS: DISPOSITION / PLANS: The patient was placed in a supine position and transferred to the recovery area in a stable condition for observation and was discharged from the recovery room after meeting discharge criteria. Home discharge instructions given to the patient by the staff. The patient was reexamined prior to discharge. The patient will schedule a follow up in clinic in 4-6 weeks. In the future, we will have to consider whether or not there is value in pursuing these SI RFA procedures for this patient due to technical problems secondary to hardware.
[2018-04-09] MEDS ORDERED: IV FLUID CONTINUATION 1,000 ML IV ONE (11:59)
--- NOTE | 2018-04-09 12:05 | FL ---
EXAMINATION TYPE: FL guided pain mgmt statistic DATE OF EXAM: 04/09/2018 COMPARISON: NONE HISTORY: Back pain TECHNIQUE: Fluoroscopy. FINDINGS/IMPRESSION: Fluoroscopic guidance was provided during procedure performed by Dr. Diaz. A total of 21 seconds of fluoroscopic time was utilized during the procedure and 2 spot images was acqu ired demonstrating localization at multiple vertebral levels and partial visualization of surgical castillo rdware.
[2018-04-09 12:26] VITALS: BP 135/81; PULSE 62
== END 2018-04-09 12:41 | disposition home or self-care (01) ==
LOC: ORPAIN 09:46
PROVIDERS: ATTEND Anesthesiology
DX: M46.1 Sacroiliitis, not elsewhere classified (principal); M47.816 Spondylosis without myelopathy or radiculopathy, lumbar region
CPT/HCPCS: 64640; 64635; J2250; J3301; J3010; 99152

== ENCOUNTER → 2018-05-08 | Outpatient (CLI) | payer OTHER ==
[2018-05-08 15:27] VITALS: BP 165/80; PULSE 75; RESP 16
--- NOTE | 2018-05-08 16:13 | P.PAINPG ---
Subjective Progress Note Date: 05/08/18 This is 62 years old female with a chronic history of severe low back pain diagnosed with postlaminectomy pain syndrome and sacroiliitis and lumbar spondylosis, status post radiofrequency ablation of the sacroiliac joint patient reported that her low back pain improved significantly, he is currently on pain medication getting prescription refills from her primary care and she is on muscle relaxant Flexeril 10 mg 3 times a day she reports she has no side effects from the medication, she denies any excessive drowsiness sleepiness and she had no fever or night sweats and no motor or sensory deficits but she is complaining of severe midback pain around the shoulder blade area bilaterally more intense on the left side Objective - Vital Signs Vital signs: Vital Signs Temp Pulse 75 05/08/18 15:16 Resp 16 05/08/18 15:16 BP 165/80 05/08/18 15:16 Pulse Ox 96 05/08/18 15:16 Intake & Output 05/07/18 05/08/18 05/08/18 18:59 06:59 18:59 Weight 77.111 kg - Exam Physical Examinations : 1-Constitutiona : Cooperative , not in acute distress . 2-HEENT : nech ; supple , no Lymphadenopathy , normal thyroid size . eyes : no ptosis , no icterus , no photophobia . ENT : normal of hearing , normal oropharynx , no Thrush . 3- Respiratory : Chest clear to auscultations Bilaterally , no wheezing , no Rhonchi . 4- Cardiovascular : regular rate and rhythem , S1 , S2 , no S3 , no S4. 5- Gastrointestinal : abdomen soft no tenderness , bowel sounds , no organomegally . 6- Genitourinary : Defferred . 7- neurologic : Cranial nerve II to XII intact , no focal neurological deffecit . 8-psychatric : alert , oriented X 3 , appropriate affect , intact judgment and insight . 9-Lymphatic : no Lymphadenopathy . 10- musculoskeltal : cervical spine = motor stregnth in the deltoid and biceps, Thoracic spine= multiple trigger point identified bilaterally more on the left side around the T7 to T9 Lumber spine = normal moter stegnth lower extremities ,thigh and legs .5/5 Assessment and Plan Plan: Assessment and plan= chronic low back pain secondary to lumbar spondylosis failed back surgery syndrome lumbar area and sacroiliitis Pain improved after radiofrequency ablation of the sacroiliac joint. Chronic, severe midback pain secondary to myofascial pain syndrome thoracic area patient will be good candidate to have trigger point injection thoracic area Patient currently on a muscle relaxant Flexeril 10 mg 3 times a day and shape of the current medication is not helping, recommend discontinue Flexeril and start patient on Zanaflex 4 mg 3 times a day, prescription for 90 tablets with 1 refill given PQRS Measure Charge Sheet Measure #130: Documentation of Current Meds in Medical Chart: Patient's medications documented in chart Measure #226: Tobacco Use: Screen & Cessation Intervention: Pt not a tobacco user Measure #111: Pneumonia Vaccination: Pneumococcal vaccine administered or previously received Measure #47: Advance Care Plan: Advance care planning discussed & documented, plan or surrogate given Measure #412: Opioid Treatment Agreement: No documentation of signed opioid treatment agreement Measure #408: Opioid Therapy Follow-up Evaluation: Patient had NO f/u eval minimum every 3 months during opioid therapy Measure #317: Preventitive Care & Scrn High Bld Press & F/U: Pre-hypertensive or hypertensive BP documented, pt will f/u with PCP Measure #128: Body Mass Index (BMI) Screening & Follow-up: BMI documented ABOVE normal parameters - f/u documented Measure #131: Pain Assessment & Follow-up: Pain positive & plan documented, Follow-up scheduled Measure #431: Unhealthy Alcohol Use Preventative Care & Scrn: Patient not identified as an unhealthy alcohol user PQRS Narrative: Smoking Status Former smoker Do You Want the Pneumonia No Vaccine AT THIS TIME? Blood Pressure 165/80 Pain Intensity [Posterior 7 Medial Back] Pain Intensity [Bilateral 8 Lower Back] Scale Used Numeric (1 - 10) Hx Alcohol Use (MH) No Home Medications: Ambulatory Orders Cyclobenzaprine [Flexeril] 10 mg PO TID PRN 07/11/16 Famotidine [Pepcid] 40 mg PO HS 07/11/16 Gabapentin [Neurontin] 600 mg PO TID 07/11/16 Levothyroxine Sodium [Synthroid] 25 mcg PO DAILY 07/11/16 Lidocaine 5% Patch [Lidoderm] 3 patch TOPICAL Q48H 07/11/16 Omeprazole [PriLOSEC] 40 mg PO DAILY 07/11/16 Potassium Chloride [K-Tab ER] 10 meq PO DAILY 07/11/16 Ibuprofen [Motrin] 600 mg PO Q8HR PRN 04/03/17 Methadone [Dolophine] 15 mg PO TID 12/03/17 Atorvastatin [Lipitor] 40 mg PO HS 12/27/17 Citalopram Hydrobromide [CeleXA] 10 mg PO DAILY 12/27/17 B Complex-Vit C-Vit E-Zinc [Z-Bec] 1 tab PO DAILY 04/08/18 Folic Acid 0.8 mg PO BID 04/08/18 Melatonin 10 mg PO HS 04/08/18 Multivitamins, Thera [Multivitamin (formulary)] 1 tab PO DAILY 04/08/18 Turmeric (Unknown Dose) 1 tab PO DAILY 04/08/18 HYDROmorphone [Dilaudid] 4 mg PO Q8HR PRN 05/08/18 clonazePAM [KlonoPIN] 1 mg PO HS 05/08/18 Controlled Substance Measures - Controlled Substance Measures Is patient prescribed a controlled substance at discharge?: No When asked, does pt state using other controlled substances?: No If prescribed controlled substance>3 days was MAPS reviewed?: No If Rx opioid, was Start Talking consent form obtained?: No If opioid is for acute pain is fill amount 7 days or less?: No Was information provided regarding opioid addiction?: No
== END | disposition home or self-care (01) ==
LOC: PNWHC3 13:14
PROVIDERS: ATTEND Specialist
DX: G89.29 Other chronic pain (principal); M54.5 Low back pain; M96.1 Postlaminectomy syndrome, not elsewhere classified; M46.1 Sacroiliitis, not elsewhere classified; M47.816 Spondylosis without myelopathy or radiculopathy, lumbar region; M79.1 Myalgia; Z79.891 Long term (current) use of opiate analgesic; Z87.891 Personal history of nicotine dependence; Z79.1 Long term (current) use of non-steroidal anti-inflammatories (NSAID); Z79.899 Other long term (current) drug therapy
CPT/HCPCS: 99211

== ENCOUNTER 2018-06-03 06:58 | Day surgery (SDC) | payer OTHER ==
[2018-05-28 15:43] VITALS: BMI 33.4
[2018-06-03] MEDS ORDERED: LACTATED RINGERS 1,000 ML IV SCH (07:00)
[2018-06-03 08:10] VITALS: TEMP 98.4
[2018-06-03] MEDS ORDERED: LIDOCAINE 1% 20 ML VIAL (10MG/ML) FOR IV START INTRADERMA ONE (08:17)
[2018-06-03] MEDS ORDERED: IV FLUID CONTINUATION 1,000 ML IV ONE ×4 (08:56)
--- NOTE | 2018-06-03 08:56 | P.PCN ---
Date of Procedure: 06/03/18 Procedure(s) Performed: Preoperative diagnoses= 1- sacroiliitis. 2-myofascial pain syndrome pain syndrome thoracic area. 3-failed back surgery syndrome lumbar area Postoperative diagnoses= same as preoperative diagnosis. Procedure= Trigger pouints injections lower thoracic paravertebral muscles 3 on the left side, and 2 on the right side Anesthesia= moderate sedation with Versed 2 mg and fentanyl 100 micrograms. Estimated blood loss=minimal. Procedure indication= the patient had a history of severe chronic low back pain , diagnosed with myofascial pain syndrome thoracic area sacroiliitis and lumbar failed back surgery syndrome ,unresponsive to conservative treatment. And she is here to have trigger point injections Procedure description= the patient was seen and identified in the preoperative holding area, risks and benefits and alternative of the procedure and possible complications discussed with the patient, and he agreed with the preceding, patient signed the consent, an IV was started, and vital signs were monitored and were stable throughout the procedure, patient was placed in the sitting position , and the Thoracic area was prepped and draped with a sterile fashion, vital signs were closely monitored during the procedure, and each of the trigger point activity was marked in the preoperative holding area each one of then injected with ropivacaine 0.5% was mixed with Kenalog ,2 mL the mixtures injected after negative aspiration for heme and CSF ,and there was no paresthesia during the injection, 25-gauge needle used , total of 3 triggerpoints injected on the left side thoracic paravertebral muscles ,and 2 on the right side thoracic paravertebral muscles, total of 10 ML of ropivacaine 0.5% mixed with the 40 mg of Kenalog , total of the mixture injected at each trigger point after negative aspiration Patient tolerated the procedure well without any complication, The patient returned to supine position after the back was cleaned and a Band- Aid applied, the patient transported to recovery room in stable condition and he was monitored for 30 minutes before he was discharged home and then patient was reexamined before going home and patient was discharged in stable condition and patient will follow up with the pain clinic in a few weeks
[2018-06-03 09:00] VITALS: RESP 18
[2018-06-03 09:08] VITALS: BP 156/64; PULSE 71
== END 2018-06-03 09:33 | disposition home or self-care (01) ==
LOC: ORPAIN 06:58
PROVIDERS: ATTEND Specialist
DX: G89.29 Other chronic pain (principal); M46.1 Sacroiliitis, not elsewhere classified; M79.1 Myalgia; M96.1 Postlaminectomy syndrome, not elsewhere classified
CPT/HCPCS: 20553; J2250; J1030; J3010

== ENCOUNTER 2018-06-17 09:18 | Day surgery (SDC) | payer OTHER ==
[2018-06-11 11:27] VITALS: BMI 28.3
[2018-06-17 09:37] VITALS: RESP 16; TEMP 98.6
[2018-06-17] MEDS ORDERED: LACTATED RINGERS 1,000 ML IV ONE (09:52)
[2018-06-17] MEDS ORDERED: LIDOCAINE 1% 20 ML VIAL (10MG/ML) FOR IV START INTRADERMA ONE (09:53)
--- NOTE | 2018-06-17 10:17 | P.PCN ---
Date of Procedure: 06/17/18 Procedure(s) Performed: Preoperative diagnoses= 1- sacroiliitis. 2-myofascial pain syndrome pain syndrome thoracic area. 3-failed back surgery syndrome lumbar area Postoperative diagnoses= same as preoperative diagnosis. Procedure= Trigger pouints injections lower thoracic paravertebral muscles 3 on the left side, and 4 on the right side Anesthesia= moderate sedation with Versed 2 mg and fentanyl 100 micrograms. Estimated blood loss=minimal. Procedure indication= the patient had a history of severe chronic low back pain , diagnosed with myofascial pain syndrome thoracic area sacroiliitis and lumbar failed back surgery syndrome ,unresponsive to conservative treatment. And she is here to have trigger point injections Procedure description= the patient was seen and identified in the preoperative holding area, risks and benefits and alternative of the procedure and possible complications discussed with the patient, and he agreed with the preceding, patient signed the consent, an IV was started, and vital signs were monitored and were stable throughout the procedure, patient was placed in the sitting position , and the Thoracic area was prepped and draped with a sterile fashion, vital signs were closely monitored during the procedure, and each of the trigger point activity was marked in the preoperative holding area each one of then injected with ropivacaine 0.5% was mixed with Kenalog ,2 mL the mixtures injected after negative aspiration for heme and CSF ,and there was no paresthesia during the injection, 25-gauge needle used , total of 3 triggerpoints injected on the left side thoracic paravertebral muscles ,and 4 on the right side thoracic paravertebral muscles, total of 14 ML of ropivacaine 0.5% mixed with the 40 mg of Kenalog , total of the mixture injected at each trigger point after negative aspiration Patient tolerated the procedure well without any complication, The patient returned to supine position after the back was cleaned and a Band- Aid applied, the patient transported to recovery room in stable condition and he was monitored for 30 minutes before he was discharged home and then patient was reexamined before going home and patient was discharged in stable condition and patient will follow up with the pain clinic in a few weeks
[2018-06-17 10:47] VITALS: BP 167/84; PULSE 77
[2018-06-17] MEDS ORDERED: IV FLUID CONTINUATION 1,000 ML IV ONE (10:52)
== END 2018-06-17 10:56 | disposition home or self-care (01) ==
LOC: ORPAIN 09:18
PROVIDERS: ATTEND Specialist
DX: M79.1 Myalgia (principal); M46.1 Sacroiliitis, not elsewhere classified; M96.1 Postlaminectomy syndrome, not elsewhere classified; K21.9 Gastro-esophageal reflux disease without esophagitis
CPT/HCPCS: 20553; J2250; J3301; J3010

== ENCOUNTER → 2018-07-17 | Outpatient (CLI) | payer OTHER ==
[2018-07-17 14:26] VITALS: BP 140/82; PULSE 99; RESP 22
--- NOTE | 2018-07-18 09:10 | P.PAINPG ---
Subjective Progress Note Date: 07/17/18 This is 62 years old female with a chronic history of severe low back pain diagnosed with postlaminectomy pain syndrome and sacroiliitis and lumbar spondylosis, status post radiofrequency ablation of the sacroiliac joint patient reported that her low back pain improved significantly, he is currently on pain medication getting prescription refills from her primary care and she is currently on Neurontin 600 mg every 8 hours, Motrin 600 mg every 8 hours , Zanaflex 4 mg every 8 hours ,methadone 2.5 mg twice a day ,she reports,that she has no side effects from the medication, she denies any excessive drowsiness sleepiness and she had no fever or night sweats and no motor or sensory deficits but she is complaining of severe low back pain with radiations superior B and also towards the lower extremities bilaterally associated with some numbness and tingling sensation Physical Examinations : 1-Constitutiona : Cooperative , not in acute distress . 2-HEENT : nech ; supple , no Lymphadenopathy , normal thyroid size . eyes : no ptosis , no icterus , no photophobia . ENT : normal of hearing , normal oropharynx , no Thrush . 3- Respiratory : Chest clear to auscultations Bilaterally , no wheezing , no Rhonchi . 4- Cardiovascular : regular rate and rhythem , S1 , S2 , no S3 , no S4. 5- Gastrointestinal : abdomen soft no tenderness , bowel sounds , no organomegally . 6- Genitourinary : Defferred . 7- neurologic : Cranial nerve II to XII intact , no focal neurological deffecit . 8-psychatric : alert , oriented X 3 , appropriate affect , intact judgment and insight . 9-Lymphatic : no Lymphadenopathy . 10- musculoskeltal : cervical spine = motor stregnth in the deltoid and biceps, Thoracic spine= multiple trigger point identified bilaterally more on the left side around the T7 to T9 Lumber spine = normal moter stegnth lower extremities ,thigh and legs .5/5 Severe tenderness over the sacroiliac joint bilaterally Straight leg raising test positive bilaterally at 30 degrees, Nolberto' s test positive bilaterally Facet loading test positive bilaterally Assessment and Plan Plan: Assessment and plan= chronic low back pain secondary to lumbar spondylosis, failed back surgery syndrome lumbar area, and sacroiliitis, facet pain syndrome thoracic area Pain improved after radiofrequency ablation of the sacroiliac joint. Currently patient had low back pain with radicular symptoms, she could benefit from, caudal epidural steroid injection ,with lysis of epidural adhesions Patient will continue getting prescription refills from her primary care Objective - Vital Signs Vital signs: Vital Signs Temp Pulse 99 07/17/18 14:18 Resp 22 07/17/18 14:18 BP 140/82 07/17/18 14:18 Pulse Ox 96 07/17/18 14:18 Intake & Output 07/17/18 07/18/18 07/18/18 18:59 06:59 18:59 Weight 73.482 kg PQRS Measure Charge Sheet Measure #130: Documentation of Current Meds in Medical Chart: Patient's medications documented in chart Measure #226: Tobacco Use: Screen & Cessation Intervention: Pt not a tobacco user Measure #111: Pneumonia Vaccination: Pneumococcal vaccine administered or previously received Measure #47: Advance Care Plan: Advance care planning discussed & documented, pt chose/unable to give Measure #412: Opioid Treatment Agreement: No documentation of signed opioid treatment agreement Measure #408: Opioid Therapy Follow-up Evaluation: Patient had NO f/u eval minimum every 3 months during opioid therapy Measure #317: Preventitive Care & Scrn High Bld Press & F/U: Pre-hypertensive or hypertensive BP documented, pt will f/u with PCP Measure #128: Body Mass Index (BMI) Screening & Follow-up: BMI documented ABOVE normal parameters - f/u documented Measure #131: Pain Assessment & Follow-up: Pain positive & plan documented, Follow-up scheduled Measure #431: Unhealthy Alcohol Use Preventative Care & Scrn: Patient not identified as an unhealthy alcohol user PQRS Narrative: Smoking Status Former smoker Do You Want the Pneumonia Vaccine Up to Date Vaccine AT THIS TIME? Blood Pressure 140/82 Pain Intensity [Generalized] 8 Scale Used Numeric (1 - 10) Hx Alcohol Use (MH) No Home Medications: Ambulatory Orders Gabapentin [Neurontin] 600 mg PO TID 07/11/16 Levothyroxine Sodium [Synthroid] 75 mcg PO DAILY 07/11/16 Lidocaine 5% Patch [Lidoderm] 1 patch TOPICAL Q48H 07/11/16 Omeprazole [PriLOSEC] 40 mg PO AC-BRKFST 07/11/16 Ibuprofen [Motrin] 600 mg PO Q8HR PRN 04/03/17 Methadone [Dolophine] 2.5 mg PO BID 12/03/17 Atorvastatin [Lipitor] 40 mg PO HS 12/27/17 tiZANidine [Zanaflex] 4 mg PO Q8HR PRN 05/08/18 Escitalopram [Lexapro] 20 mg PO DAILY 06/11/18 Pantoprazole [Protonix] 40 mg PO BID 06/11/18 Cyclobenzaprine [Flexeril] 10 mg PO DAILY 07/17/18 Gabapentin [Neurontin] 600 mg PO TID 07/17/18 Lisinopril [Zestril] 20 mg PO DAILY 07/17/18 Methadone [Dolophine] 5 mg PO TID 07/17/18 Controlled Substance Measures - Controlled Substance Measures Is patient prescribed a controlled substance at discharge?: No When asked, does pt state using other controlled substances?: No If prescribed controlled substance>3 days was MAPS reviewed?: No If Rx opioid, was Start Talking consent form obtained?: No If opioid is for acute pain is fill amount 7 days or less?: No Was information provided regarding opioid addiction?: No
== END | disposition home or self-care (01) ==
LOC: PNWHC3 13:11
PROVIDERS: ATTEND Specialist
DX: G89.29 Other chronic pain (principal); M47.816 Spondylosis without myelopathy or radiculopathy, lumbar region; M96.1 Postlaminectomy syndrome, not elsewhere classified; M46.1 Sacroiliitis, not elsewhere classified; M54.6 Pain in thoracic spine; Z87.891 Personal history of nicotine dependence; Z98.890 Other specified postprocedural states; Z79.891 Long term (current) use of opiate analgesic; Z79.899 Other long term (current) drug therapy
CPT/HCPCS: 99211

== ENCOUNTER 2018-07-30 06:50 | Day surgery (SDC) | payer OTHER ==
[2018-07-25 09:32] VITALS: BMI 26.9
[2018-07-30 07:05] VITALS: TEMP 98.9
[2018-07-30] MEDS ORDERED: LIDOCAINE 1% 20 ML VIAL (10MG/ML) FOR IV START SQ ONE (07:09)
[2018-07-30 07:14] LABS: Glucose,Whole Blood 73 mg/dL (75-99)
--- NOTE | 2018-07-30 08:12 | P.PCN ---
Date of Procedure: 07/30/18 Procedure(s) Performed: PREOP DIAGNOSIS: 1- Lumbar postlaminectomy syndrome. 2-sacroiliitis POSTOP DIAGNOSIS:1- Lumbar postlaminectomy syndrome. 2-sacroiliitis PROCEDURE: Caudal epidural steroid injection with epidurolysis and epidurogram under fluoroscopic guidance ANESTHESIA: Local with 1% lidocaine 3 ml ,and moderate sedation, with Versed 4 mg and fentanyl 100 g EBL: Minimal. PROCEDURE INDICATION: The patient with post-laminectomy syndrome with low back pain and radiculopathy radiating down in both legs, here for a caudal epidural steroid injection with epidurolysis. PROCEDURE DESCRIPTION: The patient was seen and identified in the preoperative area. Risks, benefits, complications, and alternatives were discussed with the patient. The patient agreed to proceed with the procedure and signed the consent. IV was started, and vital signs were stable. Patient was taken to the OR and time out was completed. The patient was placed in the prone position on procedure table and a pillow was placed under the abdomen to reduce lumbar lordosis. The lumbosacral area was prepped and draped in the usual sterile fashion. Vital signs were closely monitored during the procedure. lateral view and the anterior-posterior plates of the sacrum were identified with infiltration of the area overlying the sacral hiatus with 1% lidocaine .A 17 gauge RK epidural needle was used to advance through the sacral hiatus into the caudal epidural space. Omnipaque 180 dye. 2cc was injected and the position of the needle was verified to be in the midline. A Racz catheter was introduced into the epidural space and was advanced towards the L5-S1 interspace under direct fluoroscopic guidance. Multiple passes were made with the catheter for lysis of epidural adhesions. Kenalog 80 mg with 3ml of preservative free Lidocaine 1% and 5 ml of preservative free normal saline was injected slowly. Additional spread was seen to L4 under fluoroscopy. The needle and the catheter were withdrawn intact. EPIDUROGRAM: Omnipaque 180 mg dye 2 ml was injected with spread of the dye into the caudal epidural space and with spread cutoff at L5 prior to epidurolysis. Post epidurolysis dye 2 ml was injected and spread was seen to L5 .There was no further spread of the solution together with the dye above the L5 ( secondary to scar tissue ) COMPLICATIONS: None. DISPOSITION / PLANS: The patient was placed in a supine position and transferred to the recovery area in a stable condition for observation and was discharged from the recovery room after meeting discharge criteria. Home discharge instructions given to the patient by the staff. The patient was reexamined prior to discharge. The patient will schedule a follow up in the clinic in 2-4 weeks.
[2018-07-30] MEDS ORDERED: IV FLUID CONTINUATION 1,000 ML IV ONE (08:16)
[2018-07-30 08:18] VITALS: RESP 18
[2018-07-30 08:33] VITALS: BP 130/74; PULSE 82
--- NOTE | 2018-07-30 08:35 | FL ---
Fluoroscopy HISTORY: Pain 13 seconds fluoroscopy time supplied to the referring clinician. 2 intraoperative C-arm images docum ent the procedure. See dictated report from anesthesia.
== END 2018-07-30 08:50 | disposition home or self-care (01) ==
LOC: ORPAIN 06:50
PROVIDERS: ATTEND Specialist
DX: M96.1 Postlaminectomy syndrome, not elsewhere classified (principal); M46.1 Sacroiliitis, not elsewhere classified; M54.5 Low back pain; M54.18 Radiculopathy, sacral and sacrococcygeal region
CPT/HCPCS: 62264; J2250; J3301; J3010; Q9966; C1894; 62323; 99152

== ENCOUNTER → 2018-08-19 | Day surgery (SDC) | payer OTHER ==
[2018-08-13 10:25] VITALS: BMI 26.9
[~2018-08-19] MED LIST changes: -LACTATED RINGERS 1,000 ML IV SCH; +SODIUM CHLORIDE 0.9% 500 ML 500 ML IV SCH
[2018-08-19 09:13] VITALS: RESP 18; TEMP 98.1
--- NOTE | 2018-08-19 10:15 | P.PCN ---
Date of Procedure: 08/19/18 Procedure(s) Performed: PREOP DIAGNOSIS: 1- Lumbar postlaminectomy syndrome POSTOP DIAGNOSIS:1- Lumbar postlaminectomy syndrome PROCEDURE: Caudal epidural steroid injection with epidurolysis and epidurogram under fluoroscopic guidance ANESTHESIA: Local with 1% lidocaine 3 ml ,and moderate sedation, with Versed 4 mg and fentanyl 100 g EBL: Minimal. PROCEDURE INDICATION: The patient with post-laminectomy syndrome with low back pain and radiculopathy radiating down in both legs, here for a caudal epidural steroid injection with epidurolysis. PROCEDURE DESCRIPTION: The patient was seen and identified in the preoperative area. Risks, benefits, complications, and alternatives were discussed with the patient. The patient agreed to proceed with the procedure and signed the consent. IV was started, and vital signs were stable. Patient was taken to the OR and time out was completed. The patient was placed in the prone position on procedure table and a pillow was placed under the abdomen to reduce lumbar lordosis. The lumbosacral area was prepped and draped in the usual sterile fashion. Vital signs were closely monitored during the procedure. lateral view and the anterior-posterior plates of the sacrum were identified with infiltration of the area overlying the sacral hiatus with 1% lidocaine .A 17 gauge RK epidural needle was used to advance through the sacral hiatus into the caudal epidural space. Omnipaque 180 dye. 2cc was injected and the position of the needle was verified to be in the midline. A Racz catheter was introduced into the epidural space and was advanced towards the L5-S1 interspace under direct fluoroscopic guidance. Multiple passes were made with the catheter for lysis of epidural adhesions. Dep-omedrol 80 mg with 3ml of preservative free Lidocaine 1% and 5 ml of preservative free normal saline was injected slowly. Additional spread was seen to L4 under fluoroscopy. The needle and the catheter were withdrawn intact. EPIDUROGRAM: Omnipaque 180 mg dye 2 ml was injected with spread of the dye into the caudal epidural space and with spread cutoff at L5 prior to epidurolysis. Post epidurolysis dye 2 ml was injected and spread was seen to L3- 4.There was further spread of the solution together with the dye above the L3 COMPLICATIONS: None. DISPOSITION / PLANS: The patient was placed in a supine position and transferred to the recovery area in a stable condition for observation and was discharged from the recovery room after meeting discharge criteria. Home discharge instructions given to the patient by the staff. The patient was reexamined prior to discharge. The patient will schedule a follow up in the clinic in 2-4 weeks.
--- NOTE | 2018-08-19 10:28 | FL ---
EXAMINATION TYPE: FL guided pain mgmt statistic DATE OF EXAM: 08/19/2018 HISTORY: Flouroscopy time 6 seconds of fluoroscopy provided. IMPRESSION: 1. Fluoroscopy time.
[2018-08-19 10:41] VITALS: BP 157/70; PULSE 65
== END ==
LOC: ORPAIN 08:46
PROVIDERS: ATTEND Specialist
DX: M96.1 Postlaminectomy syndrome, not elsewhere classified (principal); Z91.011 Allergy to milk products
CPT/HCPCS: 62323; J2250; J3301; J3010; Q9966; C1894; 99152

== ENCOUNTER → 2018-09-03 | Day surgery (SDC) | payer OTHER ==
[2018-08-29 11:10] VITALS: BMI 26.9
--- NOTE | 2018-09-03 10:35 | P.PCN ---
Date of Procedure: 09/03/18 Procedure(s) Performed: PREOP DIAGNOSIS: 1- Lumbar postlaminectomy syndrome POSTOP DIAGNOSIS:1- Lumbar postlaminectomy syndrome PROCEDURE: Caudal epidural steroid injection with epidurolysis and epidurogram under fluoroscopic guidance ANESTHESIA: Local with 1% lidocaine 5 ml ,and moderate sedation, with Versed 4 mg and fentanyl 100 g EBL: Minimal. PROCEDURE INDICATION: The patient with post-laminectomy syndrome with low back pain and radiculopathy radiating down in both legs, here for a caudal epidural steroid injection with epidurolysis. PROCEDURE DESCRIPTION: The patient was seen and identified in the preoperative area. Risks, benefits, complications, and alternatives were discussed with the patient. The patient agreed to proceed with the procedure and signed the consent. IV was started, and vital signs were stable. Patient was taken to the OR and time out was completed. The patient was placed in the prone position on procedure table and a pillow was placed under the abdomen to reduce lumbar lordosis. The lumbosacral area was prepped and draped in the usual sterile fashion. Vital signs were closely monitored during the procedure. lateral view and the anterior-posterior plates of the sacrum were identified with infiltration of the area overlying the sacral hiatus with 1% lidocaine .A 17 gauge RK epidural needle was used to advance through the sacral hiatus into the caudal epidural space. Omnipaque 180 dye. 2cc was injected and the position of the needle was verified to be in the midline. A Racz catheter was introduced into the epidural space and was advanced towards the L5-S1 interspace under direct fluoroscopic guidance. Multiple passes were made with the catheter for lysis of epidural adhesions. Depo-medrol 80 mg with 3ml of preservative free Lidocaine 1% and 5 ml of preservative free normal saline was injected slowly. Additional spread was seen to L4 under fluoroscopy. The needle and the catheter were withdrawn intact. EPIDUROGRAM: Omnipaque 180 mg dye 2 ml was injected with spread of the dye into the caudal epidural space and with spread cutoff at L5 prior to epidurolysis. Post epidurolysis dye 2 ml was injected and spread was seen to L3- 4.There was further spread of the solution together with the dye above the L3 COMPLICATIONS: None. DISPOSITION / PLANS: The patient was placed in a supine position and transferred to the recovery area in a stable condition for observation and was discharged from the recovery room after meeting discharge criteria. Home discharge instructions given to the patient by the staff. The patient was reexamined prior to discharge. The patient will schedule a follow up in the clinic in 2-4 weeks.
--- NOTE | 2018-09-03 11:07 | FL ---
Fluoroscopy HISTORY: Pain 6 seconds fluoroscopy time supplied to the referring clinician. 3 intraoperative C-arm images document the procedure. See dictated report from anesthesia.
[2018-09-03 11:20] VITALS: BP 145/69; PULSE 86; RESP 20
== END | disposition home or self-care (01) ==
LOC: ORPAIN 09:04
PROVIDERS: ATTEND Specialist
DX: M96.1 Postlaminectomy syndrome, not elsewhere classified (principal); M54.10 Radiculopathy, site unspecified; Z91.011 Allergy to milk products
CPT/HCPCS: 62264; J2250; J1030; J3010; Q9966; C1894; 99152

== ENCOUNTER → 2018-09-09 | Outpatient (CLI) | payer OTHER ==
[2018-09-09 13:13] VITALS: BP 160/98; PULSE 87; RESP 16
--- NOTE | 2018-09-09 13:30 | P.PN ---
Subjective Progress Note Date: 09/09/18 This is 62 years old female with a chronic history of severe low back pain diagnosed with postlaminectomy pain syndrome and sacroiliitis and lumbar spondylosis, she is currently on pain medication getting prescription refills from her primary care and she is currently on Neurontin 600 mg every 8 hours, Motrin 600 mg every 8 hours ,Zanaflex 4 mg every 8 hours PRN ,methadone 2.5 mg twice a day ,she reports,that she has no side effects from the medication, she denies any excessive drowsiness sleepiness and she had no fever or night sweats and no motor or sensory deficits but she is complaining of severe low back pain , we have done a caudal epidural lysis of epidural adhesions patient reported that the radicular pain to the lower extremities improved significantly but currently she is complaining of severe low back pain radiated towards the buttock area bilaterally, Physical Examinations : 1-Constitutiona : Cooperative , not in acute distress . 2-HEENT : nech ; supple , no Lymphadenopathy , normal thyroid size . eyes : no ptosis , no icterus , no photophobia . ENT : normal of hearing , normal oropharynx , no Thrush . 3- Respiratory : Chest clear to auscultations Bilaterally , no wheezing , no Rhonchi . 4- Cardiovascular : regular rate and rhythem , S1 , S2 , no S3 , no S4. 5- Gastrointestinal : abdomen soft no tenderness , bowel sounds , no organomegally . 6- Genitourinary : Defferred . 7- neurologic : Cranial nerve II to XII intact , no focal neurological deffecit . 8-psychatric : alert , oriented X 3 , appropriate affect , intact judgment and insight . 9-Lymphatic : no Lymphadenopathy . 10- musculoskeltal : cervical spine = motor stregnth in the deltoid and biceps, Thoracic spine= multiple trigger point identified bilaterally more on the left side around the T7 to T9 Lumber spine = normal moter stegnth lower extremities ,thigh and legs .5/5 Severe tenderness over the sacroiliac joint bilaterally Straight leg raising test positive bilaterally at 30 degrees, Nolberto' s test positive bilaterally Facet loading test positive bilaterally Assessment and plan= chronic low back pain secondary to lumbar spondylosis, failed back surgery syndrome lumbar area, and sacroiliitis, facet pain syndrome thoracic area The radicular pain improved after caudal epidural steroid injection, currently she is complaining of severe low back pain with radiation to the buttock area mostly secondary to bilateral sacroiliitis Mid back pain secondary to myofascial pain syndrome, patient currently on a muscle relaxant she is Zanaflex she is using it when necessary, and she feels she has no benefit from it I recommend to discontinue Zanaflex and start patient on Flexeril 5 mg twice a day on a discussed with the patient that she has to take muscle relaxants continuously Flexeril prescription 5 mg twice a day dispense 60 with 2 refill Patient could benefit from bilateral sacroiliac joint steroid injection. Patient will continue getting prescription refills from her primary care PQRS Measure Charge Sheet Measure #130: Documentation of Current Meds in Medical Chart: Patient's medications documented in chart Measure #226: Tobacco Use: Screen & Cessation Intervention: Pt not a tobacco user Measure #111: Pneumonia Vaccination: Pneumococcal vaccine administered or previously received Measure #47: Advance Care Plan: Advance care planning discussed & documented, pt chose/unable to give Measure #412: Opioid Treatment Agreement: No documentation of signed opioid treatment agreement Measure #408: Opioid Therapy Follow-up Evaluation: Patient had NO f/u eval minimum every 3 months during opioid therapy Measure #317: Preventitive Care & Scrn High Bld Press & F/U: Pre-hypertensive or hypertensive BP documented, pt will f/u with PCP Measure #128: Body Mass Index (BMI) Screening & Follow-up: BMI documented ABOVE normal parameters - f/u documented Measure #131: Pain Assessment & Follow-up: Pain positive & plan documented, Follow-up scheduled Measure #431: Unhealthy Alcohol Use Preventative Care & Scrn: Patient not identified as an unhealthy alcohol user PQRS Narrative: Objective - Vital Signs Vital signs: Vital Signs Temp Pulse 87 09/09/18 13:02 Resp 16 09/09/18 13:02 BP 160/98 09/09/18 13:02 Pulse Ox Intake & Output 09/08/18 09/09/18 09/09/18 18:59 06:59 18:59 Weight 74.843 kg
== END ==
LOC: PNWHC3 12:08
PROVIDERS: ATTEND Specialist
DX: G89.29 Other chronic pain (principal); M47.816 Spondylosis without myelopathy or radiculopathy, lumbar region; M46.1 Sacroiliitis, not elsewhere classified; M96.1 Postlaminectomy syndrome, not elsewhere classified; M54.6 Pain in thoracic spine; M79.18 Myalgia, other site; Z79.899 Other long term (current) drug therapy
CPT/HCPCS: 99211

== ENCOUNTER 2018-10-09 06:59 | Day surgery (SDC) | payer OTHER ==
[2018-10-07 16:02] VITALS: BMI 27.9
[2018-10-09] MEDS ORDERED: SODIUM CHLORIDE 0.9% 500 ML 500 ML IV SCH (07:15)
[2018-10-09 07:57] VITALS: TEMP 97.8
[2018-10-09] MEDS ORDERED: LACTATED RINGERS 1,000 ML IV ONE (08:07)
[2018-10-09] MEDS ORDERED: LIDOCAINE 1% 20 ML VIAL (10MG/ML) FOR IV START INTRADERMA ONE (08:08)
--- NOTE | 2018-10-09 08:36 | P.PCN ---
Date of Procedure: 10/09/18 Surgeon: Preston Willard Description of Procedure: Preoperative diagnoses: Bilateral sacroilitis Postoperative diagnoses: Bilateral sacroilitis. Procedure: Bilateral sacroiliac joint steroid injection under fluoroscopic guidance. Surgeon: Preston Willard MD Anesthesia: IV sedation per hospital guidelines EBL: None Procedure indication: The patient had a history of severe chronic low back pain , diagnosed with sacroiliitis and lumbar sacral facet arthropathy unresponsive to conservative treatment. She has had 4 previous back fusions. She has intractable low back pain bilaterally. Procedure description: The patient was seen and identified in the preoperative holding area, risks and benefits and alternative of the procedure and possible complications discussed with the patient, and he agreed with the preceding, patient signed the consent, an IV was started, and vital signs were monitored and were stable throughout the procedure, patient was placed in the prone position or table and the lumbosacral area was prepped and draped with a sterile fashion, vital signs were closely monitored during the procedure, the fluoroscopy camera was placed in the contralateral oblique view on the right sacroiliac joint and the lower part of the joint was identified a 2 mL then a 25 -gauge Quincke-type spinal needle advanced slowly under fluoroscopy and placed in the posterior and inferior border of the right sacroiliac joint, placement confirmed with AP and lateral view, and after appropriate needle placement confirmed and after negative aspiration for heme and CSF and there was , 3 ml of Marcaine 0.5% and 20 mg of Depo-Medrol injected after negative aspiration, no paresthesia during the injection, no resistance to injection, and the needle was removed. The entire same procedure was repeated for the left sacroiliac joint Patient tolerated the procedure well without any complication. The patient returned to supine position after the back was cleaned and a Band- Aid applied, the patient transported to recovery room in stable condition and he was monitored for 30 minutes before he was discharged home and then patient was reexamined before going home and patient was discharged in stable condition and patient will follow up with the pain clinic in a few weeks
[2018-10-09] MEDS ORDERED: IV FLUID CONTINUATION 1,000 ML IV ONE ×2 (08:37)
[2018-10-09 08:40] VITALS: RESP 16
[2018-10-09 08:51] VITALS: BP 139/80; PULSE 78
--- NOTE | 2018-10-09 12:07 | FL ---
Fluoroscopy HISTORY: Pain 3 seconds fluoroscopy time supplied to the referring clinician. 2 intraoperative C-arm images docume nt the procedure. See dictated report from anesthesia.
== END 2018-10-09 09:05 | disposition home or self-care (01) ==
LOC: ORPAIN 06:59
PROVIDERS: ATTEND Pain Medicine Pain Medicine
DX: G89.29 Other chronic pain (principal); M46.1 Sacroiliitis, not elsewhere classified; E07.9 Disorder of thyroid, unspecified
CPT/HCPCS: J2250; J3301; J3010; G0260

== ENCOUNTER → 2018-11-21 | Outpatient (CLI) | payer OTHER ==
[2018-11-21 15:16] VITALS: BP 138/88; PULSE 89
--- NOTE | 2018-11-22 13:56 | P.PN ---
Subjective Progress Note Date: 11/21/18 This is 62 years old female with a chronic history of severe low back pain diagnosed with postlaminectomy pain syndrome and bilateral sacroiliitis and lumbar spondylosis, we have done bilateral sacroiliac joint steroid injection, and she got excellent pain relief after each injection, he is currently on pain medication getting prescription refills from her primary care and she is currently on Neurontin 600 mg every 8 hours, Motrin 600 mg every 8 hours , Zanaflex 4 mg every 8 hours ,methadone 2.5 mg twice a day ,she reports,that she has no side effects from the medication, she denies any excessive drowsiness sleepiness and she had no fever or night sweats and no motor or sensory deficits but she is complaining of severe low back pain with radiations superior B and also towards the lower extremities bilaterally associated with some numbness and tingling sensation Physical Examinations : 1-Constitutiona : Cooperative , not in acute distress . 2-HEENT : nech ; supple , no Lymphadenopathy , normal thyroid size . eyes : no ptosis , no icterus , no photophobia . ENT : normal of hearing , normal oropharynx , no Thrush . 3- Respiratory : Chest clear to auscultations Bilaterally , no wheezing , no Rhonchi . 4- Cardiovascular : regular rate and rhythem , S1 , S2 , no S3 , no S4. 5- Gastrointestinal : abdomen soft no tenderness , bowel sounds , no organomegally . 6- Genitourinary : Defferred . 7- neurologic : Cranial nerve II to XII intact , no focal neurological deffecit . 8-psychatric : alert , oriented X 3 , appropriate affect , intact judgment and insight . 9-Lymphatic : no Lymphadenopathy . 10- musculoskeltal : cervical spine = motor stregnth in the deltoid and biceps, Thoracic spine= multiple trigger point identified bilaterally more on the left side around the T7 to T9 Lumber spine = normal moter stegnth lower extremities ,thigh and legs .5/5 Severe tenderness over the sacroiliac joint bilaterally Straight leg raising test positive bilaterally at 30 degrees, Nolberto' s test positive bilaterally Facet loading test positive bilaterally Assessment and plan= chronic low back pain secondary to lumbar spondylosis, failed back surgery syndrome lumbar area, and bilateral sacroiliitis, facet pain syndrome thoracic area Pain improved after bilateral sacroiliac joint steroid injection, she could benefit from radiofrequency ablation of the sacroiliac joint, we will start with the left side and went to the right side later (radiofrequency ablation of the L5-S1 there is a thrombus radiofrequency ablation of the lateral branches of S1-S2 and S3) PQRS Measure Charge Sheet Measure #130: Documentation of Current Meds in Medical Chart: Patient's medications documented in chart Measure #226: Tobacco Use: Screen & Cessation Intervention: Pt not a tobacco user Measure #111: Pneumonia Vaccination: Pneumococcal vaccine administered or previously received Measure #47: Advance Care Plan: Advance care planning discussed & documented, pt chose/unable to give Measure #412: Opioid Treatment Agreement: No documentation of signed opioid treatment agreement Measure #408: Opioid Therapy Follow-up Evaluation: Patient had NO f/u eval minimum every 3 months during opioid therapy Measure #317: Preventitive Care & Scrn High Bld Press & F/U: normal BP ,138/88 BP documented, pt will f/u with PCP Measure #128: Body Mass Index (BMI) Screening & Follow-up: BMI documented ABOVE normal parameters - f/u documented Measure #131: Pain Assessment & Follow-up: Pain positive & plan documented, Follow-up scheduled Measure #431: Unhealthy Alcohol Use Preventative Care & Scrn: Patient not identified as an unhealthy alcohol user PQRS Narrative: - Controlled Substance Measures Is patient prescribed a controlled substance at discharge?: No When asked, does pt state using other controlled substances?: No If prescribed controlled substance>3 days was MAPS reviewed?: No If Rx opioid, was Start Talking consent form obtained?: No If opioid is for acute pain is fill amount 7 days or less?: No Was information provided regarding opioid addiction?: No Objective - Vital Signs Vital signs: Vital Signs Temp Pulse 89 11/21/18 15:07 Resp BP 138/88 11/21/18 15:07 Pulse Ox 95 11/21/18 15:07 Intake & Output 11/21/18 11/22/18 11/22/18 18:59 06:59 18:59 Weight 76.204 kg
== END ==
LOC: PNWHC3 14:06
PROVIDERS: ATTEND Specialist
DX: G89.29 Other chronic pain (principal); M47.816 Spondylosis without myelopathy or radiculopathy, lumbar region; M96.1 Postlaminectomy syndrome, not elsewhere classified; M46.1 Sacroiliitis, not elsewhere classified; M54.6 Pain in thoracic spine; Z79.899 Other long term (current) drug therapy; Z79.1 Long term (current) use of non-steroidal anti-inflammatories (NSAID)
CPT/HCPCS: 99211

== ENCOUNTER 2018-12-10 08:24 | Day surgery (SDC) | payer OTHER ==
[2018-12-06 12:19] VITALS: BMI 27.4
[2018-12-10 08:52] VITALS: TEMP 98.9
[2018-12-10] MEDS ORDERED: LACTATED RINGERS 1,000 ML IV ONE ×2 (08:57)
[2018-12-10] MEDS ORDERED: LIDOCAINE 1% 20 ML VIAL (10MG/ML) FOR IV START INTRADERMA ONE (08:58)
--- NOTE | 2018-12-10 10:11 | P.PCN ---
Date of Procedure: 12/10/18 Procedure(s) Performed: PREOPERATIVE DIAGNOSIS: 1-failed back surgery syndrome lumbar area 2- Bilateral sacroiliit. post operative Diagnosis: . 1-failed back surgery syndrome lumbar area 2- Bilateral sacroiliit. PROCEDURES: 1- Left multi-site radiofrequency thermocoagulation/ablation of the S1, S2, and S3 lateral branchs. The procedure was performed using fluoroscopic guidance during needle placement to assure proper position and maximize safety . ANESTHESIA: LOCAL ANESTHESIA = moderate sedation with intravenous versed 2 mg , and Fentanyle 100 mcg EBL: NONE INDICATION/MEDICAL NECESSITY: History of low back pain secondary to bilateral sacroiliitis and failed back surgery syndrome lumbar unresponsive to more conservative treatments. The patient reported more than 50% relief of pain symptoms following 2 previous diagnostic blocks with Bupivacaine. PROCEDURE DESCRIPTION: The patient was seen and identified in the preoperative area. Risks, benefits, complications, and alternatives were discussed with the patient. The patient agreed to proceed with the procedure and signed the consent. Vital signs were checked before and after the procedure and they remained stable. Patient ambulated to the procedure room and time out was completed. The patient was placed in the prone position on the procedure table and a pillow was placed under the abdomen to reduce lumbar lordosis. The lumbosacral area was prepped and draped in the usual sterile fashion. Critical pause was taken. L5 Dorsal Ramus RF: It was not done because the area was full of hardware , that is blocking the access to the L5-S1 dorsal Ramus location S1, S3, and S3 Lateral Branch RF: The lateral margins of the left S1, S2, and S3 foramina was not visualized , because of the hardware, then the only option was to do the procedure using the medial edge of the left sacroiliac joint, total of 6 needles placed at the medial edge of the left sacroiliac joint starting from the inferior border going superiorly, total of 6 10-cm 20 -gauge radiofrequency active tip needles placed at the medial edge of the left sacroiliac joint then after that we did the sensory testing , performed at 50 Hz and 0 to 1 volt at the three levels with production of concordant pain starting at 0.5 volt. Motor stimulation was done at 2.5 Hz. No radicular symptoms or paresthesias were produced during the testing. Subsequently, the S1, S2 , S3 lateral branch was subjected to a radiofrequency ablation at a mode of 90 seconds at 80 degrees Celsius at the 3 levels after negative motor and sensory testing and after injecting 0.5 ml of preservative free Bupivacaine 0.5 %.. The needle was withdrawn intact after each injection. COMPLICATIONS: The patient tolerated the procedure well without any acute complications. DISPOSTION/PLAN: The patient ambulated to the recovery area after the procedure in a stable condition for observation. Patient was reexamined prior to discharge. Patient was observed for 30 minutes in the recovery area and was discharged home, accompanied by an adult, after meeting discharged criteria. Discharge instructions were give to the patient by the staff. Patient was specifically instructed not to drive today and to rest for the rest of the day. The patient will schedule a follow up visit in the clinic in weeks or earlier if needed.
[2018-12-10] MEDS ORDERED: IV FLUID CONTINUATION 500 ML IV ONE (10:15)
[2018-12-10 10:18] VITALS: PULSE 83; RESP 18
[2018-12-10 10:28] VITALS: BP 134/92
--- NOTE | 2018-12-10 11:25 | FL ---
Fluoroscopy HISTORY: Pain 13 seconds fluoroscopy time supplied to the referring clinician. 4 intraoperative C-arm images docum ent the procedure. See dictated report from anesthesia.
== END 2018-12-10 10:35 | disposition home or self-care (01) ==
LOC: ORPAIN 08:24
PROVIDERS: ATTEND Specialist
DX: G89.29 Other chronic pain (principal); M96.1 Postlaminectomy syndrome, not elsewhere classified; M46.1 Sacroiliitis, not elsewhere classified; M47.816 Spondylosis without myelopathy or radiculopathy, lumbar region; M47.814 Spondylosis without myelopathy or radiculopathy, thoracic region; Z79.1 Long term (current) use of non-steroidal anti-inflammatories (NSAID); Z79.899 Other long term (current) drug therapy
CPT/HCPCS: 64635; 64636; J2250; J1030; J3010; 99152; 99153

== ENCOUNTER 2018-12-24 08:26 | Day surgery (SDC) | payer OTHER ==
[2018-12-19 12:28] VITALS: BMI 27.4
[2018-12-24 08:41] VITALS: RESP 16; TEMP 97.7
[2018-12-24] MEDS ORDERED: LACTATED RINGERS 1,000 ML IV ONE ×2 (08:43)
[2018-12-24] MEDS ORDERED: LIDOCAINE 1% 20 ML VIAL (10MG/ML) FOR IV START INTRADERMA ONE (08:43)
--- NOTE | 2018-12-24 09:33 | P.PCN ---
Date of Procedure: 12/24/18 Procedure(s) Performed: PREOPERATIVE DIAGNOSIS: 1-failed back surgery syndrome lumbar area 2- Bilateral sacroiliit. post operative Diagnosis: . 1-failed back surgery syndrome lumbar area 2- Bilateral sacroiliit. PROCEDURES: 1- Right multi-site radiofrequency thermocoagulation/ablation of the S1, S2, and S3 lateral branchs. The procedure was performed using fluoroscopic guidance during needle placement to assure proper position and maximize safety .ANESTHESIA = moderate sedation with intravenous versed 2 mg , and Fentanyle 100 mcg EBL: NONE INDICATION/MEDICAL NECESSITY: History of low back pain secondary to bilateral sacroiliitis and failed back surgery syndrome lumbar unresponsive to more conservative treatments. The patient reported more than 50% relief of pain symptoms following 2 previous diagnostic blocks with Bupivacaine. PROCEDURE DESCRIPTION: The patient was seen and identified in the preoperative area. Risks, benefits, complications, and alternatives were discussed with the patient. The patient agreed to proceed with the procedure and signed the consent. Vital signs were checked before and after the procedure and they remained stable. Patient ambulated to the procedure room and time out was completed. The patient was placed in the prone position on the procedure table and a pillow was placed under the abdomen to reduce lumbar lordosis. The lumbosacral area was prepped and draped in the usual sterile fashion. Critical pause was taken. L5 Dorsal Ramus RF: It was not done because the area was full of hardware , that is blocking the access to the L5-S1 dorsal Ramus location Right S1, S3, and S3 Lateral Branch RF: The lateral margins of the Right S1, S2, and S3 foramina was not visualized , because of the hardware, then the only option was to do the procedure using the medial edge of the Right sacroiliac joint, total of 6 needles placed at the medial edge of the Right sacroiliac joint starting from the inferior border going superiorly, total of 6 10-cm 20 -gauge radiofrequency active tip needles placed at the medial edge of the right sacroiliac joint then after that we did the sensory testing , performed at 50 Hz and 0 to 1 volt at the three levels with production of concordant pain starting at 0.5 volt. Motor stimulation was done at 2.5 Hz. No radicular symptoms or paresthesias were produced during the testing. Subsequently, the right S1, S2 , S3 lateral branch was subjected to a radiofrequency ablation at a mode of 90 seconds at 80 degrees Celsius at the 3 levels after negative motor and sensory testing and after injecting 0.5 ml of preservative free Ropivacaine 0.5 %.. The needle was withdrawn intact after each injection. COMPLICATIONS: The patient tolerated the procedure well without any acute complications. DISPOSTION/PLAN: The patient ambulated to the recovery area after the procedure in a stable condition for observation. Patient was reexamined prior to discharge. Patient was observed for 30 minutes in the recovery area and was discharged home, accompanied by an adult, after meeting discharged criteria. Discharge instructions were give to the patient by the staff. Patient was specifically instructed not to drive today and to rest for the rest of the day. The patient will schedule a follow up visit in the clinic in 3-4 weeks or earlier if needed.
[2018-12-24] MEDS ORDERED: IV FLUID CONTINUATION 1,000 ML IV ONE (09:35)
[2018-12-24 09:59] VITALS: BP 110/68; PULSE 78
--- NOTE | 2018-12-24 13:20 | FL ---
Fluoroscopy HISTORY: Pain 12 seconds fluoroscopy time supplied to the referring clinician. 4 intraoperative C-arm images docum ent the procedure. See dictated report from anesthesia.
== END 2018-12-24 10:38 | disposition home or self-care (01) ==
LOC: ORPAIN 08:26
PROVIDERS: ATTEND Specialist
DX: M96.1 Postlaminectomy syndrome, not elsewhere classified (principal); M46.1 Sacroiliitis, not elsewhere classified; M47.9 Spondylosis, unspecified
CPT/HCPCS: 64640 ×3; J2250; J3301; J3010; 64635; 64636; 99152; 99153